=== PATIENT | female | born 1950 | race Caucasian/White ===

== ENCOUNTER 2016-09-17 14:26 | Inpatient (IN) | payer MEDICARE, BC ==
[2016-09-17] MEDS ORDERED: methylPREDNISolone Sodium Succinate 125 MG/2 ML SDV IVPUSH ONE (14:35)
[2016-09-17] MEDS ORDERED: Albuterol/Ipratropium 3.0-0.5 MG/3 ML Neb Soln NEB ONE (14:35)
[2016-09-17 15:15] LABS: CHLORIDE,CL 93 mmol/L (101-111); SODIUM,NA 135 mmol/L (135-145)
[2016-09-17] MEDS ORDERED: Levofloxacin/Dextrose 5%-Water 500 MG in Premix Bag 1 BAG IV ONE (15:40)
--- NOTE | 2016-09-17 15:43 | EDM.PDOC ---
Scribed by Safia Reinoso 09/17/16 1543 for Holger Brown PA ED HISTORY OF PRESENT ILLNESS - General Chief Complaint: Respiratory Problem Stated Complaint: HARD TIME BREATHING(COPD) Time Seen by Provider: 09/17/16 14:28 Source of Information: Reports: Patient, EMS, RN notes reviewed History Limitations: Reports: No limitations - History of Present Illness INITIAL COMMENTS - FREE TEXT/NARRATIVE: Patient arrives by ambulance with shortness of breath since last night. She is doing nebs and bronchodilators without relief. She started antibiotics today. She was seen by her provider in the clinic 2 days. She did not have any steroids or injections. She did have pneumonia last year. Severity: severe Location, General: Reports: chest Improves with: Reports: None Worsens with: Reports: None Associated Symptoms (General): Reports: no other symptoms - Related Data Allergies/ADRs: Allergies Allergy/AdvReac Type Severity Reaction Status Date / Time azithromycin Allergy Severe throat Verified 09/17/16 14:41 [From Zithromax Z-Rick] closes clindamycin Allergy Intermediate Hives Verified 09/17/16 14:41 erythromycin base Allergy Intermediate Hives Verified 09/17/16 14:41 Penicillins Allergy Intermediate Hives Verified 09/17/16 14:41 Home Meds: Home Meds Albuterol [Proair HFA] 2 puff INH ASDIRECTED 09/17/16 [History] Albuterol [Proventil Neb Soln] 1 unit INH ASDIRECTED 09/17/16 [History] Chlorthalidone [Chlorthalidone] 25 mg PO DAILY 09/17/16 [History] Doxycycline [Vibra-Tabs] 100 mg PO DAILY 09/17/16 [History] Formoterol [Perforomist] 1 unit INH DAILY 09/17/16 [History] Ibuprofen 200 mg PO ASDIRECTED 09/17/16 [History] Levothyroxine Sodium [Levothyroxine Sodium] 125 mcg PO DAILY 09/17/16 [History] Potassium Chloride [Potassium Chloride] 20 meq PO DAILY 09/17/16 [History] Tiotropium [place] [Spiriva Respimat] 2 puff INH DAILY 09/17/16 [History] Past Medical History Respiratory History: Reports: COPD, Other (see below) (bronchiectasis.) Social & Family History - Family History Family Medical History: Noncontributory - Living Situation & Occupation Living situation: Reports: with family ED ROS GENERAL - Review of Systems Review Of Systems: ROS reveals no pertinent complaints other than HPI. ED EXAM, GENERAL - Physical Exam Exam: See Below Exam Limited By: No limitations General Appearance: other (Shortness of breath and tripodding.) Eye Exam: bilateral eye: EOMI, normal inspection, PERRL Ears: normal external exam, normal canal, hearing grossly normal, normal TMs Nose: normal inspection, normal mucosa, no blood Throat/Mouth: Normal inspection, Normal lips, Normal teeth, Normal gums, Normal oropharynx, Normal voice, No airway compromise Head: atraumatic, normocephalic Neck: normal inspection, supple, non-tender, full range of motion Respiratory/Chest: rhonchi (throughout.), other (increased shortness of breath. Decreased lung sounds. ) Cardiovascular: tachycardia GI/Abdominal: normal bowel sounds, soft, non tender, no organomegaly, no distention, no abnormal bruit, no mass Back Exam: normal inspection, full range of motion, NT Extremities: normal inspection, normal range of motion, non-tender, normal capillary refill, no pedal edema Neurological: alert, oriented, CN II-XII intact, normal cognition, normal gait, normal reflexes, no motor/sensory deficits Psychiatric: normal affect, normal mood Skin Exam: Diaphoretic Lymphatic: no adenopathy Course - Vital Signs Last Recorded V/S: Last Vital Signs Temp 36.2 C 09/17/16 14:25 Pulse 110 H 09/17/16 14:25 Resp 28 H 09/17/16 14:25 BP 141/71 H 09/17/16 14:25 Pulse Ox 88 L 09/17/16 14:25 - Orders/Labs/Meds Orders: Active Orders 24 hr Category Date Time Status RT Aerosol Therapy [RC] ASDIRECTED Care 09/17/16 14:35 Active Chest 1V Frontal [CR] Urgent Exams 09/17/16 14:36 Ordered CULTURE BLOOD [BC] Stat Lab 09/17/16 14:36 Ordered Levofloxacin/Dextrose 5%-Water [Levaquin in D5W 500 MG/ Med 09/17/16 15:40 Ordered 100 ML] 500 mg Premix Bag 1 bag IV ONETIME Medication Orders Levofloxacin/Dextrose 500 mg/ (Premix) 100 mls @ 100 mls/hr IV ONETIME ONE Stop: 09/17/16 16:39 Labs: Laboratory Tests 09/17/16 09/17/16 09/17/16 Range/Units 14:48 14:48 14:48 WBC 11.6 H (5.0-10.0) 10^3/uL RBC 4.51 (4.2-5.4) 10^6/uL Hgb 14.4 (12.0-16.0) g/dL Hct 41.7 (37.0-47.0) % MCV 92.5 (80-100) fL MCH 31.9 (27.0-34.0) pg MCHC 34.5 (33.0-35.0) g/dL Plt Count 319 (150-450) 10^3/uL Neut % (Auto) 79.6 H (42.2-75.2) % Lymph % (Auto) 8.9 L (20.5-50.1) % [place] % (Auto) 7.3 (2-8) % Eos % (Auto) 3.9 H (1.0-3.0) % Baso % (Auto) 0.3 (0.0-1.0) % Sodium 135 (135-145) mmol/L Potassium 3.0 L (3.6-5.0) mmol/L Chloride 93 L (101-111) mmol/L Carbon Dioxide 31.0 (21.0-31.0) mmol/L Anion Gap 14.0 BUN 11 (7-18) mg/dL Creatinine 0.6 (0.6-1.3) mg/dL Est Cr Clr Drug Dosing TNP Estimated GFR (MDRD) > 60 BUN/Creatinine Ratio 18.33 Glucose 127 H (74-105) mg/dL Lactic Acid 0.8 (0.5-2.2) mmol/L Calcium 9.0 (8.4-10.2) mg/dl Total Bilirubin 0.4 (0.2-1.0) mg/dL AST 29 (10-42) IU/L ALT 31 (10-60) IU/L Alkaline Phosphatase 73 (42-121) IU/L Total Protein 7.5 (6.7-8.2) g/dl Albumin 4.0 (3.2-5.5) g/dl Globulin 3.5 Albumin/Globulin Ratio 1.14 Meds: Medications Generic Name Dose Route Start Last Admin Trade Name Ashishq PRN Reason Stop Dose Admin Levofloxacin/Dextrose 500 mg/ 100 mls @ 100 mls/hr 09/17/16 15:40 Premix IV 09/17/16 16:39 ONETIME ONE Discontinued Medications Generic Name Dose Route Start Last Admin Trade Name Carlitos PRN Reason Stop Dose Admin Albuterol/Ipratropium 3 ml 09/17/16 14:35 09/17/16 14:58 Duoneb 3.0-0.5 Mg/3 Ml NEB 09/17/16 14:36 3 ml ONETIME ONE Administration Methylprednisolone Sodium Succinate 125 mg 09/17/16 14:35 09/17/16 15:02 Solu-Medrol IVPUSH 09/17/16 14:36 125 mg ONETIME ONE Administration Departure - Departure Time of Disposition: 15:42 Disposition: Home, Self-Care 01 Condition: poor Clinical Impression: COPD exacerbation, Bronchitis Care Plan Goals: Discussed the examination, lab and x-ray results with Dr. Burrows. Dr. Burrows accepted the patient for continued evaluation and management as an inpatient. - My Orders Last 24 Hours: My Active Orders 09/17/16 14:35 RT Aerosol Therapy [RC] ASDIRECTED 09/17/16 14:36 Chest 1V Frontal [CR] Urgent CULTURE BLOOD [BC] Stat 09/17/16 15:40 Levofloxacin/Dextrose 5%-Water [Levaquin in D5W 500 MG/100 ML] 500 mg Premix Bag 1 bag IV ONETIME - Assessment/Plan Last 24 Hours: My Active Orders 09/17/16 14:35 RT Aerosol Therapy [RC] ASDIRECTED 09/17/16 14:36 Chest 1V Frontal [CR] Urgent CULTURE BLOOD [BC] Stat 09/17/16 15:40 Levofloxacin/Dextrose 5%-Water [Levaquin in D5W 500 MG/100 ML] 500 mg Premix Bag 1 bag IV ONETIME I have read and agree with the documentation that has been completed regarding this visit. By signing this record, I attest that the documentation was completed in my physical presence and is an accurate record of the encounter.
[2016-09-17] MEDS ORDERED: Potassium Chloride 20 MEQ in Premix Bag 1 BAG IV ONE (17:22)
[2016-09-17] MEDS ORDERED: Potassium Chloride 10 MEQ Tab.ER PO ONE (17:34)
--- NOTE | 2016-09-17 17:42 | PCM.HP ---
H&P History of Present Illness - General Date of Service: 09/17/16 Admit Problem/Dx: Admission Diagnosis/Problem Admission Diagnosis/Problem Dyspnea Source of Information: Patient History Limitations: Reports: No limitations - History of Present Illness Initial Comments - Free Text/Narative: Patient is a 66 year old female was admitted becuase of shortness of breath. Started to noted this last week, associated with dry cough. Temperature at home around 99F which for her is already high. No rhinorrhea, nor sore throat. no chest nor PND, though she uses nocturnal oxygen. minimal ankle swelling. started to have audible wheezing today. no exposure to sick contacts. Has baseline severe COPD. last course of antibiotics was last month after finishing 2.5 weeks of doxycycline. becuase of the flare up, she came in to ER. Right Hip Pain Score (Numeric/FACES): 0 back Pain Score (Numeric/FACES): 0 - Related Data Allergies/Adverse Reactions: Allergies Allergy/AdvReac Type Severity Reaction Status Date / Time azithromycin Allergy Severe throat Verified 09/17/16 14:41 [From Zithromax Z-Rick] closes clindamycin Allergy Intermediate Hives Verified 09/17/16 14:41 erythromycin base Allergy Intermediate Hives Verified 09/17/16 14:41 Penicillins Allergy Intermediate Hives Verified 09/17/16 14:41 levofloxacin [From Levaquin] AdvReac Nausea Verified 09/17/16 15:56 Home Medications: Home Meds Albuterol [Proair HFA] 2 puff INH Q4HR 09/17/16 [History] Albuterol [Proventil Neb Soln] 1 unit INH DAILY 09/17/16 [History] Chlorthalidone 25 mg PO 0800 09/17/16 [History] Fluticasone Propionate [Flonase] 0 gm NASBOTH DAILY PRN 09/17/16 [History] Formoterol [Perforomist] 2 ml INH BID 09/17/16 [History] Ibuprofen 200 mg PO ASDIRECTED 09/17/16 [History] Levothyroxine Sodium 125 mcg PO DAILY 09/17/16 [History] Potassium Chloride 20 meq PO DAILY 09/17/16 [History] Tiotropium [place] [Spiriva Respimat] 2 puff INH DAILY 09/17/16 [History] atorvaSTATin [Lipitor] 5 mg PO BEDTIME 09/17/16 [History] Albuterol/Ipratropium [DuoNeb 3.0-0.5 MG/3 ML] 3 ml NEB QIDRT #120 neb 09/24/16 [Rx] Codeine/Promethazine [Phenergan with Codeine] 5 ml PO Q4HR PRN #150 ml 09/24/16 [Rx] Codeine/guaiFENesin [Robitussin AC] 5 ml PO Q6H PRN #300 ml 09/24/16 [Rx] Diltiazem [Cardizem CD] 180 mg PO DAILY #30 cap.cd 09/24/16 [Rx] Prednisone [IJD: Prednisone] 10 mg PO DAILY #21 tab 09/24/16 [Rx] Sulfamethoxazole/Trimethoprim [Bactrim Ds Tablet] 1 each PO BID #14 tablet 09/24 [Rx] guaiFENesin [Robitussin] 100 mg PO 0630,1730 cup 09/24/16 [Rx] Past Medical History HEENT History: Reports: Other (see below) Other HEENT History: deviated septum Cardiovascular History: Reports: Hypertension Respiratory History: Reports: Bronchitis, recurrent, COPD, Pneumonia, recurrent MEDICAL DERMATOLOGIST History: Reports: Prolapsed uterus Endocrine/Metabolic History: Reports: Hypothyroidism Hematologic History: Reports: Other (see below) Other Hematologic History: hemochromotosis , mother had - Infectious Disease History Infectious Disease History: Reports: Chicken pox, Measles, Mumps, Pertussis ( whooping cough), Shingles - Past Surgical History GI Surgical History: Reports: Colonoscopy Social & Family History - Family History Family Medical History: Noncontributory Cardiac: Reports: Heart murmur Endocrine/Metabolic: Reports: Hypothyroidism Hematologic: Reports: Other (see below) Other Hematologic Family History: hemochromotosis - Tobacco Use Smoking Status *Q: Former Smoker Years of Tobacco use: 40 - Recreational Drug Use Recreational Drug Use: No - Living Situation & Occupation Living situation: Reports: with family H&P Review of Systems - Review of Systems: Review Of Systems: See Below General: Reports: fever Pulmonary: Reports: shortness of breath, wheezing Cardiovascular: Reports: dyspnea on exertion Gastrointestinal: Reports: No symptoms Genitourinary: Reports: no symptoms Musculoskeletal: Reports: no symptoms Psychiatric: Reports: no symptoms Hematologic/Lymphatic: Reports: no symptoms Exam - Exam Exam: See Below - Vital Signs Vital Signs: Last Vital Signs Temp 36.3 C 09/17/16 16:29 Pulse 111 H 09/17/16 16:29 Resp 28 H 09/17/16 16:29 BP 131/72 09/17/16 16:29 Pulse Ox 93 L 09/17/16 16:29 Weight: 78.925 kg - Exam General: alert, oriented Lungs: Other (decrease air entry on both lung jaime) Cardiovascular: regular rhythm, tachycardia Abdomen: normal bowel sounds, soft Back Exam: normal inspection Extremities: normal inspection, other (minimal ankle swelling on the left) Neurological: cranial nerves intact Neuro Extensive - Mental Status: alert, oriented x3 - Patient Data Result Diagrams: 09/18/16 05:40 09/24/16 06:33 *Q Meaningful Use (ADM) - VTE *Q VTE Criteria *Q: - Stroke *Q Stroke Criteria *Q: - AMI *Q AMI Criteria *Q: Problem List Initiated/Reviewed/Updated: Yes Orders Last 24hrs: Active Orders 24 hr Category Date Time Status Patient Status [ADT] Routine ADT 09/17/16 16:29 Active Intake and Output [RC] QSHIFT Care 09/17/16 16:29 Active Oxygen Therapy [RC] PRN Care 09/17/16 16:29 Active RT Aerosol Therapy [RC] ASDIRECTED Care 09/17/16 16:49 Active Up With Assistance [RC] ASDIRECTED Care 09/17/16 16:29 Active VTE/DVT Education [RC] PER UNIT ROUTINE Care 09/17/16 16:29 Active Vital Signs [RC] Q4H Care 09/17/16 16:29 Active BASIC METABOLIC PANEL,BMP [CHEM] Routine Lab 09/18/16 06:00 Ordered CBC WITH AUTO DIFF [HEME] Routine Lab 09/18/16 06:00 Ordered MAGNESIUM [CHEM] Routine Lab 09/18/16 06:00 Ordered Albuterol/Ipratropium [DuoNeb 3.0-0.5 MG/3 ML] Med 09/17/16 19:00 Active 3 ml NEB Q4HRRT Chlorthalidone Med 09/18/16 09:00 Active 25 mg PO DAILY Enoxaparin [Lovenox] Med 09/18/16 09:00 Active 40 mg SUBCUT DAILY Formoterol [Perforomist] Med 09/18/16 09:00 Pending 1 unit INH DAILY Levothyroxine Med 09/18/16 06:00 Active 125 mcg PO ACBREAKFAST Magnesium Sulfate/D5W [Magnesium 1 GM in D5W 100 ML] 1 Med 09/17/16 17:14 Active gm Premix Bag 1 bag IV ONETIME Potassium Chloride [KCL 20 MEQ in Water 100 ML] 20 meq Med 09/17/16 17:22 Stop Req Premix Bag 1 bag IV ONETIME Potassium Chloride [Klor-Con 10] Med 09/18/16 09:00 Active 20 meq PO DAILY Potassium Chloride [Klor-Con 10] Med 09/17/16 17:34 Once 20 meq PO ONETIME ONE Tiotropium [place] [Spiriva Respimat] Med 09/18/16 09:00 Pending 2 puff INH DAILY Resuscitation Status Routine Resus Stat 09/17/16 16:49 Ordered Medication Orders Albuterol/Ipratropium (Duoneb 3.0-0.5 Mg/3 Ml) 3 ml NEB Q4HRRT [place] Chlorthalidone (Chlorthalidone) 25 mg PO DAILY [place] Enoxaparin Sodium (Lovenox) 40 mg SUBCUT DAILY [place] Potassium Chloride 20 meq/ (Premix) 100 mls @ 50 mls/hr IV ONETIME ONE Stop: 09/17/16 19:21 Magnesium Sulfate/Dextrose 1 (gm/ Premix) 100 mls @ 100 mls/hr IV ONETIME ONE Stop: 09/17/16 18:13 Levothyroxine Sodium (Levothyroxine) 125 mcg PO ACBREAKFAST [place] Non-Formulary Medication (Formoterol [Perforomist]) 1 unit INH DAILY [place] Non-Formulary Medication (Tiotropium [place] [Spiriva Respimat]) 2 puff INH DAILY [place] Potassium Chloride (Klor-Con 10) 20 meq PO DAILY [place] Assessment/Plan Comment:: 1. COPD exacerbation - was given solumedrol, will follow up solumedrol 60mg IV every 8 hours - Levaquin - duoneb every 4 hours [place] - IS and flutter valve - last echo 05/2016 showed diastolic dysfunction, no signs of decompensation 2. Hypokalemia - add another 20mg of Kdur - replace low magnesium 3. hypothyroidism - continue synthroid 4. Diverticuolosis - ensure regular BM 5. DVT prophylaxis - lovenox 6. code status: full
[2016-09-17] MEDS ORDERED: methylPREDNISolone Sodium Succinate 40 MG/1 ML SDV IVPUSH SCH (17:45)
[2016-09-17] MEDS ORDERED: Zolpidem 5 MG Tab PO PRN (18:18)
[2016-09-17] MEDS: Albuterol/Ipratropium 3.0-0.5 MG/3 ML Neb Soln NEB SCH ×2 (18:28→22:49)
[2016-09-17] MEDS ORDERED: Albuterol 0.021% 0.63 MG/3 ML Neb Soln NEB PRN (18:43)
[2016-09-17] MEDS: Ibuprofen 400 MG Tab PO PRN (19:07)
[2016-09-17] MEDS: methylPREDNISolone Sodium Succinate 40 MG/1 ML SDV IVPUSH SCH (19:50)
[2016-09-17] MEDS: FORMOTEROL 20 MCG/2 ML INH SCH (19:59)
[2016-09-17] MEDS: TIOTROPIUM BROMIDE INH SCH (19:59)
[2016-09-17] MEDS: Budesonide 0.5 MG/2 ML Neb Susp NEB SCH (20:12)
[2016-09-17] MEDS: Enoxaparin 40 MG/0.4 ML Syringe SUBCUT SCH (20:12)
[2016-09-18] MEDS: Albuterol/Ipratropium 3.0-0.5 MG/3 ML Neb Soln NEB SCH ×6 (03:43→22:21)
[2016-09-18] MEDS: methylPREDNISolone Sodium Succinate 40 MG/1 ML SDV IVPUSH SCH ×3 (03:45→20:25)
[2016-09-18] MEDS: Levothyroxine 125 MCG Tab PO SCH (05:46)
[2016-09-18 06:25] LABS: CHLORIDE,CL 94 mmol/L (101-111); SODIUM,NA 136 mmol/L (135-145)
[2016-09-18] MEDS: Budesonide 0.5 MG/2 ML Neb Susp NEB SCH ×2 (07:16→18:08)
[2016-09-18] MEDS: FORMOTEROL 20 MCG/2 ML INH SCH ×2 (08:23→18:06)
[2016-09-18] MEDS: Chlorthalidone 25 MG Tab PO SCH (08:24)
[2016-09-18] MEDS: Potassium Chloride 10 MEQ Tab.ER PO SCH (08:24)
[2016-09-18] MEDS: TIOTROPIUM BROMIDE INH SCH (08:27)
[2016-09-18] MEDS: Levofloxacin/Dextrose 5%-Water 750 MG in Premix Bag 1 BAG IV SCH (08:28)
[2016-09-18] MEDS ORDERED: Non-Formulary Medication 1 Each (Tiotropium Bromide [Spiriva Respimat] 2 PUFF) INH SCH (09:00)
[2016-09-18] MEDS ORDERED: FORMOTEROL INH SCH (09:00)
--- NOTE | 2016-09-18 09:41 | PCM.PN ---
- General Info Date of Service: 09/18/16 Admission Dx/Problem (Free Text): Admission Diagnosis/Problem Admission Diagnosis/Problem Dyspnea/Cough/Increased shortness of Breath Subjective Update: Today she feels much better, still has cough but mech better, No nausea or Vomiting, Slept well, appetite is Good. Functional Status: Reports: tolerating diet, ambulating, urinating - Review of Systems General: Reports: weakness, appetite (good). Denies: fever, chills HEENT: Denies: dysphasia, headaches, sore throat, visual changes Pulmonary: Reports: shortness of breath, cough, sputum (scant). Denies: hemoptysis Cardiovascular: Reports: dyspnea on exertion. Denies: chest pain, lightheadedness Gastrointestinal: Denies: Abdominal pain, Difficulty swallowing, Nausea, Vomiting Genitourinary: Denies: dysuria, burning Musculoskeletal: Denies: neck pain, shoulder pain, back pain, joint pain, joint swelling Skin: Denies: cyanosis, jaundice, diaphoresis, bruising, pruritis, rash Neurological: Denies: confusion, numbness, tremors, difficulty walking Psychiatric: Denies: confusion, anxiety - Patient Data Vitals - most recent: Last Vital Signs Temp 37.3 C 09/18/16 07:00 Pulse 102 H 09/18/16 07:30 Resp 20 09/18/16 07:00 BP 110/61 09/18/16 07:00 Pulse Ox 97 09/18/16 07:30 Weight - most recent: 78.925 kg I&O - last 24 hours: Intake & Output 09/17/16 09/18/16 09/18/16 22:59 06:59 14:59 Intake Total 693 550 Output Total 600 800 Balance 93 -250 Lab Results last 24 hrs: Laboratory Results - last 24 hr 09/18/16 09/18/16 Range/Units 05:40 05:40 WBC 7.0 (5.0-10.0) 10^3/uL RBC 4.38 (4.2-5.4) 10^6/uL Hgb 13.9 (12.0-16.0) g/dL Hct 40.9 (37.0-47.0) % MCV 93.4 (80-100) fL MCH 31.7 (27.0-34.0) pg MCHC 34.0 (33.0-35.0) g/dL Plt Count 329 (150-450) 10^3/uL Neut % (Auto) 85.5 H (42.2-75.2) % Lymph % (Auto) 10.8 L (20.5-50.1) % [place] % (Auto) 3.6 (2-8) % Eos % (Auto) 0.0 L (1.0-3.0) % Baso % (Auto) 0.1 (0.0-1.0) % Sodium 136 (135-145) mmol/L Potassium 3.1 L (3.6-5.0) mmol/L Chloride 94 L (101-111) mmol/L Carbon Dioxide 32.0 H (21.0-31.0) mmol/L Anion Gap 13.1 BUN 11 (7-18) mg/dL Creatinine 0.7 (0.6-1.3) mg/dL Est Cr Clr Drug Dosing 75.01 mL/min Estimated GFR (MDRD) > 60 Glucose 174 H (74-105) mg/dL Calcium 9.1 (8.4-10.2) mg/dl Magnesium 1.9 (1.8-2.5) mg/dL Med Orders - Current: Current Medications Albuterol (Proventil Neb Soln) 0.63 mg NEB Q4HRRT PRN PRN Reason: Dyspnea Albuterol/Ipratropium (Duoneb 3.0-0.5 Mg/3 Ml) 3 ml NEB Q4HRRT [facility] Last Admin: 09/18/16 07:16 Dose: 3 ml Budesonide (Pulmicort) 0.5 mg NEB BIDRT [facility] Last Admin: 09/18/16 07:16 Dose: 0.5 mg Chlorthalidone (Chlorthalidone) 25 mg PO DAILY [facility] Last Admin: 09/18/16 08:24 Dose: 25 mg Enoxaparin Sodium (Lovenox) 40 mg SUBCUT Q24H [facility] Last Admin: 09/17/16 20:12 Dose: 40 mg Levofloxacin/Dextrose 750 mg/ (Premix) 150 mls @ 100 mls/hr IV Q24H [facility] Last Admin: 09/18/16 08:28 Dose: 50 mls/hr Ibuprofen (Motrin) 400 mg PO Q6H PRN PRN Reason: Pain Last Admin: 09/17/16 19:07 Dose: 400 mg Levothyroxine Sodium (Levothyroxine) 125 mcg PO ACBREAKFAST [facility] Last Admin: 09/18/16 05:46 Dose: 125 mcg Methylprednisolone Sodium Succinate (Solu-Medrol) 60 mg IVPUSH Q8H [facility] Last Admin: 09/18/16 03:45 Dose: 60 mg Tiotropium [place] [ Spiriva Respimat] 2 PuffPtom 0 each INH DAILY [facility] Last Admin: 09/18/16 08:27 Dose: 2 each Formoterol [ Perforomist] 20mcg/2ml Ptom 1 each INH BID@0700,1800 [facility] Potassium Chloride (Klor-Con 10) 20 meq PO DAILY [facility] Last Admin: 09/18/16 08:24 Dose: 20 meq Zolpidem Tartrate (Ambien) 5 mg PO BEDTIME PRN PRN Reason: Insomnia Discontinued Medications Albuterol/Ipratropium (Duoneb 3.0-0.5 Mg/3 Ml) 3 ml NEB ONETIME ONE Stop: 09/17/16 14:36 Last Admin: 09/17/16 14:58 Dose: 3 ml Levofloxacin/Dextrose 500 mg/ (Premix) 100 mls @ 100 mls/hr IV ONETIME ONE Stop: 09/17/16 16:39 Last Infusion: 09/17/16 17:22 Dose: 50 mls/hr Potassium Chloride 20 meq/ (Premix) 100 mls @ 50 mls/hr IV ONETIME ONE Stop: 09/17/16 19:21 Last Admin: 09/17/16 17:40 Dose: Not Given Magnesium Sulfate/Dextrose 1 (gm/ Premix) 100 mls @ 100 mls/hr IV ONETIME ONE Stop: 09/17/16 18:13 Last Admin: 09/17/16 18:12 Dose: 100 mls/hr Methylprednisolone Sodium Succinate (Solu-Medrol) 125 mg IVPUSH ONETIME ONE Stop: 09/17/16 14:36 Last Admin: 09/17/16 15:02 Dose: 125 mg Methylprednisolone Sodium Succinate (Solu-Medrol) 60 mg IVPUSH Q8H [facility] Last Admin: 09/17/16 18:24 Dose: Not Given Formoterol [ Perforomist] 20mcg/2ml Ptom 1 each INH DAILY [facility] Last Admin: 09/18/16 08:23 Dose: 1 each Potassium Chloride (Klor-Con 10) 20 meq PO ONETIME ONE Stop: 09/17/16 17:35 Last Admin: 09/17/16 18:11 Dose: 20 meq - Exam Quality Assessment: supplemental oxygen, DVT prophylaxis. No: urine catheter General: alert, oriented, cooperative, no acute distress HEENT: Pupils equal, Pupils reactive, Mucous membr. moist/pink Neck: supple, no JVD, no thyromegaly. No: lymphadenopathy Lungs: Clear to auscultation, Normal respiratory effort, Wheezing. No: Crackles Cardiovascular: regular rate, regular rhythm, no murmurs Abdomen: bowel sounds present, soft, no tenderness, no distension. No: rebound , guarding (Female) Exam: Deferred Back Exam: normal inspection, full range of motion Extremities: no edema, no clubbing, no calf tenderness Skin: warm, dry, intact Neurological: no new focal deficit, normal speech, normal tone Psy/Mental Status: alert, normal affect, normal mood - Problem List & Annotations (1) Hypokalemia SNOMED Code(s): 27205405 Code(s): E87.6 - HYPOKALEMIA Status: Acute Current Visit: Yes (2) Hypothyroidism SNOMED Code(s): 28931683 Code(s): E03.9 - HYPOTHYROIDISM, UNSPECIFIED Status: Acute Current Visit : Yes (3) COPD exacerbation SNOMED Code(s): 503445889, 189092960 Code(s): J44.1 - CHRONIC OBSTRUCTIVE PULMONARY DISEASE W (ACUTE) EXACERBATION Status: Acute Current Visit: Yes - Problem List Review Problem List Initiated/Reviewed/Updated: Yes - My Orders Last 24 Hours: My Active Orders 09/17/16 Dinner Regular Diet [DIET] - Plan Plan:: This is a 66 Y/O F with Past Medical history of COPD on Nocturnal oxygen and also use oxygen during the day only if she is out for physical activity, do not use oxygen during the while at rest, other history include Hypothyroidism and chronic Hypokalemia 1. COPD exacerbation - Will continue solumedrol 60mg IV every 8 hours and start tapering from tomorrow ( 09/19/16) - Will continue IV Levaquin ( tolerating no skin rash or other symptom of intolerance) - Continue duoneb every 4 hours trey - Advise to use IS and flutter valve 2. Hypokalemia - Continue Potassium chloride 20meq daily - Will give a extra dose of potassium chloride 40 meq PO X 1 now -Recheck Potassium in AM 3. Hypothyroidism - continue synthroid 4. Diverticuolosis - No abdominal Pain ensure regular BM 5. Hypomagnesemia: Pt has receive replacement and Magnesium is acceptable 6. DVT prophylaxis - lovenox 7. code status: full
[2016-09-18] MEDS ORDERED: Potassium Chloride 10 MEQ Tab.ER PO ONE (09:52)
[2016-09-18] MEDS: Enoxaparin 40 MG/0.4 ML Syringe SUBCUT SCH (20:26)
[2016-09-18] MEDS: Ibuprofen 400 MG Tab PO PRN (22:23)
[2016-09-19] MEDS: Albuterol/Ipratropium 3.0-0.5 MG/3 ML Neb Soln NEB SCH ×6 (03:58→22:59)
[2016-09-19] MEDS: methylPREDNISolone Sodium Succinate 40 MG/1 ML SDV IVPUSH SCH ×3 (04:00→19:46)
[2016-09-19] MEDS: Levothyroxine 125 MCG Tab PO SCH (05:22)
[2016-09-19] MEDS: Budesonide 0.5 MG/2 ML Neb Susp NEB SCH ×2 (06:56→18:13)
[2016-09-19] MEDS: FORMOTEROL 20 MCG/2 ML INH SCH ×2 (06:56→18:14)
[2016-09-19 06:59] LABS: CHLORIDE,CL 93 mmol/L (101-111); SODIUM,NA 133 mmol/L (135-145)
[2016-09-19] MEDS ORDERED: Potassium Chloride 10 MEQ Tab.ER PO ONE ×2 (08:49→18:08)
[2016-09-19] MEDS ORDERED: Furosemide 40 MG/4 ML VIAL IVPUSH ONE (09:38)
--- NOTE | 2016-09-19 09:52 | PCM.PN ---
- General Info Date of Service: 09/19/16 Admission Dx/Problem (Free Text): Admission Diagnosis/Problem Admission Diagnosis/Problem Dyspnea/Cough/Increased shortness of Breath Subjective Update: Today she feels much better, still has cough but much better, still on 3 L NC oxygen, No nausea or Vomiting, Slept well, appetite is Good. Functional Status: Reports: tolerating diet, ambulating, incentive spirometry - Review of Systems General: Reports: weakness, appetite (good). Denies: fever, chills HEENT: Denies: dysphasia, headaches, post nasal drip, sinus congestion, visual changes Pulmonary: Reports: shortness of breath, cough. Denies: sputum, hemoptysis, wheezing Cardiovascular: Reports: dyspnea on exertion. Denies: chest pain, edema, lightheadedness Gastrointestinal: Denies: Abdominal pain, Diarrhea, Difficulty swallowing, Melena, Nausea, Vomiting Genitourinary: Denies: dysuria, burning, urgency, flank pain Musculoskeletal: Denies: neck pain, shoulder pain, back pain, foot pain Skin: Denies: cyanosis, jaundice, bruising, pruritis, rash Neurological: Denies: headache, tingling, tremors, difficulty walking, change in speech Psychiatric: Denies: confusion, anxiety - Patient Data Vitals - most recent: Last Vital Signs Temp 36.9 C 09/19/16 07:00 Pulse 116 H 09/19/16 07:00 Resp 20 09/19/16 07:00 BP 117/58 L 09/19/16 07:00 Pulse Ox 95 09/19/16 07:00 Weight - most recent: 78.925 kg I&O - last 24 hours: Intake & Output 09/18/16 09/19/16 09/19/16 22:59 06:59 14:59 Intake Total 1110 1350 Output Total 600 1200 Balance 510 150 Lab Results last 24 hrs: Laboratory Results - last 24 hr 09/19/16 Range/Units 06:15 Sodium 133 L (135-145) mmol/L Potassium 3.2 L (3.6-5.0) mmol/L Chloride 93 L (101-111) mmol/L Carbon Dioxide 29.0 (21.0-31.0) mmol/L Anion Gap 14.2 BUN 18 (7-18) mg/dL Creatinine 0.8 (0.6-1.3) mg/dL Est Cr Clr Drug Dosing 65.63 mL/min Estimated GFR (MDRD) > 60 Glucose 157 H (74-105) mg/dL Calcium 8.8 (8.4-10.2) mg/dl Med Orders - Current: Current Medications Albuterol (Proventil Neb Soln) 0.63 mg NEB Q4HRRT PRN PRN Reason: Dyspnea Albuterol/Ipratropium (Duoneb 3.0-0.5 Mg/3 Ml) 3 ml NEB Q4HRRT [facility] Last Admin: 09/19/16 06:56 Dose: 3 ml Budesonide (Pulmicort) 0.5 mg NEB BIDRT [facility] Last Admin: 09/19/16 06:56 Dose: 0.5 mg Chlorthalidone (Chlorthalidone) 25 mg PO DAILY [facility] Last Admin: 09/18/16 08:24 Dose: 25 mg Enoxaparin Sodium (Lovenox) 40 mg SUBCUT Q24H [facility] Last Admin: 09/18/16 20:26 Dose: 40 mg Furosemide (Lasix) 40 mg IVPUSH NOW ONE Stop: 09/19/16 09:39 Levofloxacin/Dextrose 750 mg/ (Premix) 150 mls @ 100 mls/hr IV Q24H [facility] Last Admin: 09/18/16 08:28 Dose: 50 mls/hr Ibuprofen (Motrin) 400 mg PO Q6H PRN PRN Reason: Pain Last Admin: 09/18/16 22:23 Dose: 400 mg Levothyroxine Sodium (Levothyroxine) 125 mcg PO ACBREAKFAST [facility] Last Admin: 09/19/16 05:22 Dose: 125 mcg Methylprednisolone Sodium Succinate (Solu-Medrol) 60 mg IVPUSH Q8H [facility] Last Admin: 09/19/16 04:00 Dose: 60 mg Tiotropium [place] [ Spiriva Respimat] 2 PuffPtom 0 each INH DAILY [facility] Last Admin: 09/18/16 08:27 Dose: 2 each Formoterol [ Perforomist] 20mcg/2ml Ptom 1 each INH BID@0700,1800 [facility] Last Admin: 09/19/16 06:56 Dose: 1 each Potassium Chloride (Klor-Con 10) 20 meq PO DAILY [facility] Last Admin: 09/18/16 08:24 Dose: 20 meq Zolpidem Tartrate (Ambien) 5 mg PO BEDTIME PRN PRN Reason: Insomnia Discontinued Medications Albuterol/Ipratropium (Duoneb 3.0-0.5 Mg/3 Ml) 3 ml NEB ONETIME ONE Stop: 09/17/16 14:36 Last Admin: 09/17/16 14:58 Dose: 3 ml Levofloxacin/Dextrose 500 mg/ (Premix) 100 mls @ 100 mls/hr IV ONETIME ONE Stop: 09/17/16 16:39 Last Infusion: 09/17/16 17:22 Dose: 50 mls/hr Potassium Chloride 20 meq/ (Premix) 100 mls @ 50 mls/hr IV ONETIME ONE Stop: 09/17/16 19:21 Last Admin: 09/17/16 17:40 Dose: Not Given Magnesium Sulfate/Dextrose 1 (gm/ Premix) 100 mls @ 100 mls/hr IV ONETIME ONE Stop: 09/17/16 18:13 Last Admin: 09/17/16 18:12 Dose: 100 mls/hr Methylprednisolone Sodium Succinate (Solu-Medrol) 125 mg IVPUSH ONETIME ONE Stop: 09/17/16 14:36 Last Admin: 09/17/16 15:02 Dose: 125 mg Methylprednisolone Sodium Succinate (Solu-Medrol) 60 mg IVPUSH Q8H [facility] Last Admin: 09/17/16 18:24 Dose: Not Given Formoterol [ Perforomist] 20mcg/2ml Ptom 1 each INH DAILY [facility] Last Admin: 09/18/16 08:23 Dose: 1 each Potassium Chloride (Klor-Con 10) 20 meq PO ONETIME ONE Stop: 09/17/16 17:35 Last Admin: 09/17/16 18:11 Dose: 20 meq Potassium Chloride (Klor-Con 10) 40 meq PO ONETIME ONE Stop: 09/18/16 09:53 Last Admin: 09/18/16 10:07 Dose: 40 meq Potassium Chloride (Klor-Con 10) 40 meq PO ONETIME ONE Stop: 09/19/16 08:50 - Exam Quality Assessment: supplemental oxygen, DVT prophylaxis. No: urine catheter General: alert, oriented, cooperative, no acute distress HEENT: Pupils equal, Mucous membr. moist/pink Neck: supple, no JVD. No: lymphadenopathy, carotid bruit Lungs: Clear to auscultation, Normal respiratory effort, Decreased breath sounds , Crackles Cardiovascular: regular rate, regular rhythm, murmurs Abdomen: bowel sounds present, soft, no tenderness, no distension Back Exam: normal inspection Extremities: no clubbing, no calf tenderness, calf tenderness, edema (Trace to + 1) Skin: warm, dry, intact Neurological: no new focal deficit, normal gait, normal speech Psy/Mental Status: alert, normal affect, normal mood - Problem List & Annotations (1) Hypokalemia SNOMED Code(s): 60978610 Code(s): E87.6 - HYPOKALEMIA Status: Acute Current Visit: Yes (2) Hypothyroidism SNOMED Code(s): 83857683 Code(s): E03.9 - HYPOTHYROIDISM, UNSPECIFIED Status: Acute Current Visit : Yes (3) COPD exacerbation SNOMED Code(s): 213802701, 609250402 Code(s): J44.1 - CHRONIC OBSTRUCTIVE PULMONARY DISEASE W (ACUTE) EXACERBATION Status: Acute Current Visit: Yes (4) Edema extremities SNOMED Code(s): 815819457 Code(s): R60.0 - LOCALIZED EDEMA Status: Acute Current Visit: Yes - Problem List Review Problem List Initiated/Reviewed/Updated: Yes - My Orders Last 24 Hours: My Active Orders 09/19/16 09:38 Furosemide [Lasix] 40 mg IVPUSH NOW ONE 09/20/16 06:00 BASIC METABOLIC PANEL,BMP [CHEM] Routine - Plan Plan:: This is a 66 Y/O F with Past Medical history of COPD on Nocturnal oxygen and also use oxygen during the day only if she is out for physical activity, do not use oxygen during the while at rest, other history include Hypothyroidism and chronic Hypokalemia and history of smoking 40 years ( quit 4 years ago) 1. COPD exacerbation - Will continue solumedrol 60mg IV every 8 hours and start tapering from tomorrow ( 09/20/16) - Will continue IV Levaquin ( tolerating no skin rash or other symptom of intolerance), can not add any other Abx because of severe allery status - Continue duoneb every 4 hours trey - Advise to use IS and flutter valve -Titrate NC Oxygen as tolerated and also encourage walking 2. Hypokalemia - Continue Potassium chloride 20meq daily - Will give an extra dose of potassium chloride 40 meq PO X 1 now -Recheck Potassium in AM 3. Hypothyroidism - continue synthroid 4. Diverticuolosis - No abdominal Pain ensure regular BM 5. Hypomagnesemia: Pt has receive replacement and Magnesium is acceptable 6. Edema of Estremities: She has Increased LE swelling and also CXR increased vascular markings -Will give dose ogf lasix 40 mg IV X1 dose -Continue Chlorthalidone 12.5 mg daily 7. DVT prophylaxis - lovenox 8. code status: full
[2016-09-19] MEDS: Chlorthalidone 25 MG Tab PO SCH (09:53)
[2016-09-19] MEDS: Potassium Chloride 10 MEQ Tab.ER PO SCH (09:54)
[2016-09-19] MEDS: Levofloxacin/Dextrose 5%-Water 750 MG in Premix Bag 1 BAG IV SCH (09:56)
[2016-09-19] MEDS: TIOTROPIUM BROMIDE INH SCH (09:56)
[2016-09-19] MEDS: Enoxaparin 40 MG/0.4 ML Syringe SUBCUT SCH (21:28)
[2016-09-19] MEDS: Ibuprofen 400 MG Tab PO PRN (21:34)
[2016-09-20] MEDS: Albuterol/Ipratropium 3.0-0.5 MG/3 ML Neb Soln NEB SCH ×6 (03:14→22:44)
[2016-09-20] MEDS: Sodium Chloride 0.9% 10 ML Syringe FLUSH PRN ×2 (03:20→20:14)
[2016-09-20] MEDS: methylPREDNISolone Sodium Succinate 40 MG/1 ML SDV IVPUSH SCH ×3 (03:22→20:15)
[2016-09-20] MEDS: Levothyroxine 125 MCG Tab PO SCH (06:24)
[2016-09-20] MEDS: FORMOTEROL 20 MCG/2 ML INH SCH ×2 (06:38→18:14)
[2016-09-20] MEDS: Budesonide 0.5 MG/2 ML Neb Susp NEB SCH ×2 (06:41→18:08)
[2016-09-20 06:55] LABS: CHLORIDE,CL 92 mmol/L (101-111); SODIUM,NA 134 mmol/L (135-145)
[2016-09-20] MEDS: Chlorthalidone 25 MG Tab PO SCH (09:26)
[2016-09-20] MEDS: Potassium Chloride 10 MEQ Tab.ER PO SCH (09:26)
[2016-09-20] MEDS: TIOTROPIUM BROMIDE INH SCH (09:26)
[2016-09-20] MEDS: Levofloxacin/Dextrose 5%-Water 750 MG in Premix Bag 1 BAG IV SCH (09:26)
[2016-09-20] MEDS ORDERED: Potassium Chloride 10 MEQ Tab.ER PO ONE (12:58)
--- NOTE | 2016-09-20 12:58 | PCM.PN ---
- General Info Date of Service: 09/20/16 Subjective Update: pt reports breathing cont to improved but not to basline. very sob after any activity- just walking to bathroom- and iwht longer conversations Functional Status: Reports: pain controlled, tolerating diet, ambulating, urinating - Review of Systems Pulmonary: Reports: shortness of breath, cough Cardiovascular: Reports: dyspnea on exertion Gastrointestinal: Reports: No symptoms - Patient Data Vitals - most recent: Last Vital Signs Temp 36.3 C 09/20/16 11:00 Pulse 127 H 09/20/16 11:00 Resp 18 09/20/16 11:00 BP 124/82 09/20/16 11:00 Pulse Ox 93 L 09/20/16 11:00 Weight - most recent: 79.492 kg I&O - last 24 hours: Intake & Output 09/19/16 09/20/16 09/20/16 22:59 06:59 14:59 Intake Total 2300 650 143 Output Total 149 502 4712 Balance 1460 50 -857 Lab Results last 24 hrs: Laboratory Results - last 24 hr 09/20/16 Range/Units 06:22 Sodium 134 L (135-145) mmol/L Potassium 3.5 L (3.6-5.0) mmol/L Chloride 92 L (101-111) mmol/L Carbon Dioxide 31.0 (21.0-31.0) mmol/L Anion Gap 14.5 BUN 21 H (7-18) mg/dL Creatinine 0.9 (0.6-1.3) mg/dL Est Cr Clr Drug Dosing 58.34 mL/min Estimated GFR (MDRD) > 60 Glucose 158 H (74-105) mg/dL Calcium 9.0 (8.4-10.2) mg/dl Med Orders - Current: Current Medications Albuterol (Proventil Neb Soln) 0.63 mg NEB Q4HRRT PRN PRN Reason: Dyspnea Albuterol/Ipratropium (Duoneb 3.0-0.5 Mg/3 Ml) 3 ml NEB Q4HRRT [facility] Last Admin: 09/20/16 11:17 Dose: 3 ml Budesonide (Pulmicort) 0.5 mg NEB BIDRT [facility] Last Admin: 09/20/16 06:41 Dose: 0.5 mg Chlorthalidone (Chlorthalidone) 25 mg PO DAILY [facility] Last Admin: 09/20/16 09:26 Dose: 25 mg Enoxaparin Sodium (Lovenox) 40 mg SUBCUT Q24H [facility] Last Admin: 09/19/16 21:28 Dose: 40 mg Levofloxacin/Dextrose 750 mg/ (Premix) 150 mls @ 100 mls/hr IV Q24H [facility] Last Infusion: 09/20/16 10:24 Dose: 75 mls/hr Ibuprofen (Motrin) 400 mg PO Q6H PRN PRN Reason: Pain Last Admin: 09/19/16 21:34 Dose: 400 mg Levothyroxine Sodium (Levothyroxine) 125 mcg PO ACBREAKFAST [facility] Last Admin: 09/20/16 06:24 Dose: 125 mcg Methylprednisolone Sodium Succinate (Solu-Medrol) 40 mg IVPUSH Q8H [facility] Last Admin: 09/20/16 11:17 Dose: 40 mg Tiotropium [place] [ Spiriva Respimat] 2 PuffPtom 0 each INH DAILY [facility] Last Admin: 09/20/16 09:26 Dose: 2 each Formoterol [ Perforomist] 20mcg/2ml Ptom 1 each INH BID@0700,1800 [facility] Last Admin: 09/20/16 06:38 Dose: 1 each Potassium Chloride (Klor-Con 10) 20 meq PO DAILY [facility] Last Admin: 09/20/16 09:26 Dose: 20 meq Sodium Chloride (Saline Flush) 10 ml FLUSH ASDIRECTED PRN PRN Reason: Keep Vein Open Last Admin: 09/20/16 03:20 Dose: 10 ml Zolpidem Tartrate (Ambien) 5 mg PO BEDTIME PRN PRN Reason: Insomnia Discontinued Medications Albuterol/Ipratropium (Duoneb 3.0-0.5 Mg/3 Ml) 3 ml NEB ONETIME ONE Stop: 09/17/16 14:36 Last Admin: 09/17/16 14:58 Dose: 3 ml Furosemide (Lasix) 40 mg IVPUSH NOW ONE Stop: 09/19/16 09:39 Last Admin: 09/19/16 10:22 Dose: 40 mg Levofloxacin/Dextrose 500 mg/ (Premix) 100 mls @ 100 mls/hr IV ONETIME ONE Stop: 09/17/16 16:39 Last Infusion: 09/17/16 17:22 Dose: 50 mls/hr Potassium Chloride 20 meq/ (Premix) 100 mls @ 50 mls/hr IV ONETIME ONE Stop: 09/17/16 19:21 Last Admin: 09/17/16 17:40 Dose: Not Given Magnesium Sulfate/Dextrose 1 (gm/ Premix) 100 mls @ 100 mls/hr IV ONETIME ONE Stop: 09/17/16 18:13 Last Admin: 09/17/16 18:12 Dose: 100 mls/hr Methylprednisolone Sodium Succinate (Solu-Medrol) 125 mg IVPUSH ONETIME ONE Stop: 09/17/16 14:36 Last Admin: 09/17/16 15:02 Dose: 125 mg Methylprednisolone Sodium Succinate (Solu-Medrol) 60 mg IVPUSH Q8H [facility] Last Admin: 09/17/16 18:24 Dose: Not Given Methylprednisolone Sodium Succinate (Solu-Medrol) 60 mg IVPUSH Q8H [facility] Last Admin: 09/20/16 03:22 Dose: 60 mg Formoterol [ Perforomist] 20mcg/2ml Ptom 1 each INH DAILY [facility] Last Admin: 09/18/16 08:23 Dose: 1 each Potassium Chloride (Klor-Con 10) 20 meq PO ONETIME ONE Stop: 09/17/16 17:35 Last Admin: 09/17/16 18:11 Dose: 20 meq Potassium Chloride (Klor-Con 10) 40 meq PO ONETIME ONE Stop: 09/18/16 09:53 Last Admin: 09/18/16 10:07 Dose: 40 meq Potassium Chloride (Klor-Con 10) 40 meq PO ONETIME ONE Stop: 09/19/16 08:50 Last Admin: 09/19/16 09:53 Dose: 40 meq Potassium Chloride (Klor-Con 10) 20 meq PO ONETIME ONE Stop: 09/19/16 18:09 Last Admin: 09/19/16 18:11 Dose: 20 meq - Exam Quality Assessment: supplemental oxygen General: alert, oriented, cooperative, mild distress (with conversation ) Lungs: Decreased breath sounds, Crackles (right base ) Cardiovascular: regular rhythm, tachycardia Abdomen: bowel sounds present, soft, no tenderness Extremities: edema (trace ) - Problem List & Annotations (1) Bronchitis SNOMED Code(s): 48299361 Code(s): J40 - BRONCHITIS, NOT SPECIFIED ACUTE OR CHRONIC Status: Acute Current Visit: Yes (2) COPD exacerbation SNOMED Code(s): 227604325, 324752363 Code(s): J44.1 - CHRONIC OBSTRUCTIVE PULMONARY DISEASE W (ACUTE) EXACERBATION Status: Acute Current Visit: Yes - Problem List Review Problem List Initiated/Reviewed/Updated: Yes - My Orders Last 24 Hours: My Active Orders 09/20/16 12:00 methylPREDNISolone Sod Succ [Solu-MEDROL] 40 mg IVPUSH Q8H - Plan Plan:: This is a 66 Y/O F with Past Medical history of COPD on Nocturnal oxygen and also use oxygen during the day only if she is out for physical activity, do not use oxygen during the while at rest, other history include Hypothyroidism and chronic Hypokalemia and history of smoking 40 years ( quit 4 years ago) 1. COPD exacerbation - Will continue solumedrol decrease to 40 mg Q8 - Will continue IV Levaquin - Continue duoneb every 4 hours trey - Advise to use IS and flutter valve -Titrate NC Oxygen as tolerated and also encourage walking 2. Hypokalemia - Continue Potassium chloride 20meq daily -3.4 this am- can give extra dose again today -Recheck Potassium in AM 3. Hypothyroidism - continue synthroid 4. Diverticuolosis - No abdominal Pain ensure regular BM 5. Hypomagnesemia: Pt has receive replacement and Magnesium is acceptable 6. Edema of Estremities: She has Increased LE swelling and also CXR increased vascular markings -received one dose lasix 40 mg IV X1 -Continue Chlorthalidone 12.5 mg daily 7. DVT prophylaxis - lovenox 8. code status: full
[2016-09-20] MEDS: Enoxaparin 40 MG/0.4 ML Syringe SUBCUT SCH (20:20)
[2016-09-20] MEDS: Ibuprofen 400 MG Tab PO PRN (22:49)
[2016-09-21] MEDS: Albuterol/Ipratropium 3.0-0.5 MG/3 ML Neb Soln NEB SCH ×6 (03:56→23:24)
[2016-09-21] MEDS: Sodium Chloride 0.9% 10 ML Syringe FLUSH PRN ×2 (03:57→09:14)
[2016-09-21] MEDS: methylPREDNISolone Sodium Succinate 40 MG/1 ML SDV IVPUSH SCH ×3 (03:58→20:47)
[2016-09-21] MEDS: Levothyroxine 125 MCG Tab PO SCH (05:04)
[2016-09-21 07:11] LABS: CHLORIDE,CL 92 mmol/L (101-111); SODIUM,NA 134 mmol/L (135-145)
[2016-09-21] MEDS: Budesonide 0.5 MG/2 ML Neb Susp NEB SCH ×2 (07:28→17:39)
[2016-09-21] MEDS: FORMOTEROL 20 MCG/2 ML INH SCH ×2 (07:29→17:39)
[2016-09-21] MEDS: Levofloxacin/Dextrose 5%-Water 750 MG in Premix Bag 1 BAG IV SCH (09:11)
[2016-09-21] MEDS: TIOTROPIUM BROMIDE INH SCH (09:15)
[2016-09-21] MEDS: Potassium Chloride 10 MEQ Tab.ER PO SCH ×2 (09:18→20:48)
[2016-09-21] MEDS: Chlorthalidone 25 MG Tab PO SCH (09:18)
--- NOTE | 2016-09-21 12:48 | PCM.PN ---
- General Info Date of Service: 09/21/16 Subjective Update: pt did better with sleep last night- oxygen kept at 3 liters per her home routine. breathing improving slowly. + cough minimal sputum. had back pain due to cough- relieved with motrin. gets tachy with activity but no dizziness, cp or near syncope. states having the duo nebs with her pulmicort/formoter works better than her home regiman - taking duo nebs seperate from pul/form Functional Status: Reports: pain controlled, tolerating diet, ambulating, urinating, incentive spirometry - Review of Systems General: Reports: no symptoms Pulmonary: Reports: shortness of breath, cough, sputum Cardiovascular: Reports: dyspnea on exertion, edema (minmal on left leg ) Gastrointestinal: Reports: No symptoms Musculoskeletal: Reports: back pain Skin: Reports: no symptoms - Patient Data Vitals - most recent: Last Vital Signs Temp 36.7 C 09/21/16 11:30 Pulse 122 H 09/21/16 11:34 Resp 28 H 09/21/16 11:30 BP 127/77 09/21/16 11:30 Pulse Ox 95 09/21/16 11:30 Weight - most recent: 79.152 kg I&O - last 24 hours: Intake & Output 09/20/16 09/21/16 09/21/16 22:59 06:59 14:59 Intake Total 9488 011 4235 Output Total 1800 500 Balance -300 0 1080 Lab Results last 24 hrs: Laboratory Results - last 24 hr 09/21/16 Range/Units 06:25 Sodium 134 L (135-145) mmol/L Potassium 3.5 L (3.6-5.0) mmol/L Chloride 92 L (101-111) mmol/L Carbon Dioxide 30.0 (21.0-31.0) mmol/L Anion Gap 15.5 BUN 21 H (7-18) mg/dL Creatinine 0.8 (0.6-1.3) mg/dL Est Cr Clr Drug Dosing 65.63 mL/min Estimated GFR (MDRD) > 60 Glucose 146 H (74-105) mg/dL Calcium 8.7 (8.4-10.2) mg/dl Med Orders - Current: Current Medications Albuterol (Proventil Neb Soln) 0.63 mg NEB Q4HRRT PRN PRN Reason: Dyspnea Albuterol/Ipratropium (Duoneb 3.0-0.5 Mg/3 Ml) 3 ml NEB Q4HRRT [facility] Last Admin: 09/21/16 11:34 Dose: 3 ml Budesonide (Pulmicort) 0.5 mg NEB BIDRT [facility] Last Admin: 09/21/16 07:28 Dose: 0.5 mg Chlorthalidone (Chlorthalidone) 25 mg PO DAILY [facility] Last Admin: 09/21/16 09:18 Dose: 25 mg Enoxaparin Sodium (Lovenox) 40 mg SUBCUT Q24H [facility] Last Admin: 09/20/16 20:20 Dose: 40 mg Levofloxacin/Dextrose 750 mg/ (Premix) 150 mls @ 100 mls/hr IV Q24H [facility] Last Admin: 09/21/16 09:11 Dose: 75 mls/hr Ibuprofen (Motrin) 400 mg PO Q6H PRN PRN Reason: Pain Last Admin: 09/20/16 22:49 Dose: 400 mg Levothyroxine Sodium (Levothyroxine) 125 mcg PO ACBREAKFAST [facility] Last Admin: 09/21/16 05:04 Dose: 125 mcg Methylprednisolone Sodium Succinate (Solu-Medrol) 40 mg IVPUSH Q8H [facility] Last Admin: 09/21/16 03:58 Dose: 40 mg Tiotropium [place] [ Spiriva Respimat] 2 PuffPtom 0 each INH DAILY [facility] Last Admin: 09/21/16 09:15 Dose: 2 each Formoterol [ Perforomist] 20mcg/2ml Ptom 1 each INH BID@0700,1800 [facility] Last Admin: 09/21/16 07:29 Dose: 1 each Potassium Chloride (Klor-Con 10) 20 meq PO DAILY [facility] Last Admin: 09/21/16 09:18 Dose: 20 meq Potassium Chloride (Klor-Con 10) 20 meq PO BEDTIME [facility] Stop: 09/22/16 21:01 Sodium Chloride (Saline Flush) 10 ml FLUSH ASDIRECTED PRN PRN Reason: Keep Vein Open Last Admin: 09/21/16 09:14 Dose: 10 ml Zolpidem Tartrate (Ambien) 5 mg PO BEDTIME PRN PRN Reason: Insomnia Discontinued Medications Albuterol/Ipratropium (Duoneb 3.0-0.5 Mg/3 Ml) 3 ml NEB ONETIME ONE Stop: 09/17/16 14:36 Last Admin: 09/17/16 14:58 Dose: 3 ml Furosemide (Lasix) 40 mg IVPUSH NOW ONE Stop: 09/19/16 09:39 Last Admin: 09/19/16 10:22 Dose: 40 mg Levofloxacin/Dextrose 500 mg/ (Premix) 100 mls @ 100 mls/hr IV ONETIME ONE Stop: 09/17/16 16:39 Last Infusion: 09/17/16 17:22 Dose: 50 mls/hr Potassium Chloride 20 meq/ (Premix) 100 mls @ 50 mls/hr IV ONETIME ONE Stop: 09/17/16 19:21 Last Admin: 09/17/16 17:40 Dose: Not Given Magnesium Sulfate/Dextrose 1 (gm/ Premix) 100 mls @ 100 mls/hr IV ONETIME ONE Stop: 09/17/16 18:13 Last Admin: 09/17/16 18:12 Dose: 100 mls/hr Methylprednisolone Sodium Succinate (Solu-Medrol) 125 mg IVPUSH ONETIME ONE Stop: 09/17/16 14:36 Last Admin: 09/17/16 15:02 Dose: 125 mg Methylprednisolone Sodium Succinate (Solu-Medrol) 60 mg IVPUSH Q8H [facility] Last Admin: 09/17/16 18:24 Dose: Not Given Methylprednisolone Sodium Succinate (Solu-Medrol) 60 mg IVPUSH Q8H [facility] Last Admin: 09/20/16 03:22 Dose: 60 mg Formoterol [ Perforomist] 20mcg/2ml Ptom 1 each INH DAILY [facility] Last Admin: 09/18/16 08:23 Dose: 1 each Potassium Chloride (Klor-Con 10) 20 meq PO ONETIME ONE Stop: 09/17/16 17:35 Last Admin: 09/17/16 18:11 Dose: 20 meq Potassium Chloride (Klor-Con 10) 40 meq PO ONETIME ONE Stop: 09/18/16 09:53 Last Admin: 09/18/16 10:07 Dose: 40 meq Potassium Chloride (Klor-Con 10) 40 meq PO ONETIME ONE Stop: 09/19/16 08:50 Last Admin: 09/19/16 09:53 Dose: 40 meq Potassium Chloride (Klor-Con 10) 20 meq PO ONETIME ONE Stop: 09/19/16 18:09 Last Admin: 09/19/16 18:11 Dose: 20 meq Potassium Chloride (Klor-Con 10) 20 meq PO ONETIME ONE Stop: 09/20/16 12:59 Last Admin: 09/20/16 13:26 Dose: 20 meq - Exam Quality Assessment: supplemental oxygen General: alert, oriented, cooperative, mild distress (with conversation ) HEENT: Pupils equal Lungs: Decreased breath sounds, Other (accessory muscles use with converastion - but is able to speak better today ) Cardiovascular: regular rate, regular rhythm Abdomen: bowel sounds present, soft, no tenderness Extremities: edema (trace left leg ) Skin: warm Psy/Mental Status: alert, normal affect - Problem List & Annotations (1) Bronchitis SNOMED Code(s): 48205906 Code(s): J40 - BRONCHITIS, NOT SPECIFIED ACUTE OR CHRONIC Status: Acute Current Visit: Yes (2) COPD exacerbation SNOMED Code(s): 391801188, 330267612 Code(s): J44.1 - CHRONIC OBSTRUCTIVE PULMONARY DISEASE W (ACUTE) EXACERBATION Status: Acute Current Visit: Yes - Problem List Review Problem List Initiated/Reviewed/Updated: Yes - My Orders Last 24 Hours: My Active Orders 09/20/16 12:00 methylPREDNISolone Sod Succ [Solu-MEDROL] 40 mg IVPUSH Q8H 09/21/16 12:39 Communication Order [RC] ROUTINE 09/21/16 21:00 Potassium Chloride [Klor-Con 10] 20 meq PO BEDTIME 09/22/16 06:00 BASIC METABOLIC PANEL,BMP [CHEM] Routine MAGNESIUM [CHEM] Routine - Plan Plan:: This is a 66 Y/O F with Past Medical history of COPD on Nocturnal oxygen and also use oxygen during the day only if she is out for physical activity, do not use oxygen during the while at rest, other history include Hypothyroidism and chronic Hypokalemia and history of smoking 40 years ( quit 4 years ago) 1. COPD exacerbation with acute on chronic hypoxic respiratory failure - continue solumedrol 40 mg Q8 - started 09/19/16- consider decrease in am - continue IV Levaquin - Continue duoneb every 4 hours trey - Advise to use IS and flutter valve -Titrate NC Oxygen as tolerated and also encourage walking -try to wean resting oxgyen - will likely need oxygen with activiyt- monitor - -cont 3 liters oxgyen NC when sleeping -per home regimen 2. Hypokalemia - Continue Potassium chloride 20meq daily -3.4 this am- can give extra dose again today - give at hS -Recheck Potassium in AM 3. Hypothyroidism - continue synthroid 4. Diverticuolosis - No abdominal Pain ensure regular BM 5. Hypomagnesemia: Pt has receive replacement and Magnesium is acceptable - recheck in am since K+ cont to drop 6. Edema of Extremities: -She had Increased LE swelling and also CXR increased vascular markings -received one dose lasix 40 mg IV X1 -Continue Chlorthalidone 12.5 mg daily 7. back pain -PRN motrin DVT prophylaxis - lovenox code status: full
[2016-09-21] MEDS: Enoxaparin 40 MG/0.4 ML Syringe SUBCUT SCH (20:49)
[2016-09-21] MEDS: Ibuprofen 400 MG Tab PO PRN (23:37)
[2016-09-22] MEDS: Albuterol/Ipratropium 3.0-0.5 MG/3 ML Neb Soln NEB SCH ×5 (03:30→21:24)
[2016-09-22] MEDS: Sodium Chloride 0.9% 10 ML Syringe FLUSH PRN ×3 (03:31→21:24)
[2016-09-22] MEDS: methylPREDNISolone Sodium Succinate 40 MG/1 ML SDV IVPUSH SCH ×3 (03:31→21:25)
[2016-09-22] MEDS: Levothyroxine 125 MCG Tab PO SCH (05:52)
[2016-09-22 06:56] LABS: CHLORIDE,CL 93 mmol/L (101-111); SODIUM,NA 137 mmol/L (135-145)
[2016-09-22] MEDS: Budesonide 0.5 MG/2 ML Neb Susp NEB SCH ×2 (07:14→17:03)
[2016-09-22] MEDS: FORMOTEROL 20 MCG/2 ML INH SCH ×2 (07:15→17:08)
--- NOTE | 2016-09-22 08:30 | PCM.PN ---
- General Info Date of Service: 09/22/16 Subjective Update: pt notes no problems with her antibx. still quite tachy and dyspnic with activity - both improve with rest. Notes almost immediately if the oxygen if off. Functional Status: Reports: pain controlled, tolerating diet, ambulating, urinating - Review of Systems General: Reports: no symptoms HEENT: Reports: sinus congestion (chronic deviated septum ) Pulmonary: Reports: shortness of breath, cough, sputum Cardiovascular: Reports: dyspnea on exertion Gastrointestinal: Reports: No symptoms - Patient Data Vitals - most recent: Last Vital Signs Temp 36.9 C 09/22/16 07:00 Pulse 122 H 09/22/16 08:02 Resp 20 09/22/16 07:00 BP 132/86 09/22/16 07:00 Pulse Ox 93 L 09/22/16 07:00 Weight - most recent: 79.152 kg I&O - last 24 hours: Intake & Output 09/21/16 09/22/16 09/22/16 22:59 06:59 14:59 Intake Total 240 740 Output Total 1950 Balance 240 -1210 Lab Results last 24 hrs: Laboratory Results - last 24 hr 09/22/16 Range/Units 05:50 Sodium 137 (135-145) mmol/L Potassium 3.8 (3.6-5.0) mmol/L Chloride 93 L (101-111) mmol/L Carbon Dioxide 36.0 H (21.0-31.0) mmol/L Anion Gap 11.8 BUN 17 (7-18) mg/dL Creatinine 0.7 (0.6-1.3) mg/dL Est Cr Clr Drug Dosing 75.01 mL/min Estimated GFR (MDRD) > 60 Glucose 157 H (74-105) mg/dL Calcium 8.8 (8.4-10.2) mg/dl Magnesium 2.0 (1.8-2.5) mg/dL Med Orders - Current: Current Medications Albuterol (Proventil Neb Soln) 0.63 mg NEB Q4HRRT PRN PRN Reason: Dyspnea Albuterol/Ipratropium (Duoneb 3.0-0.5 Mg/3 Ml) 3 ml NEB Q4HRRT [facility] Last Admin: 09/22/16 07:14 Dose: 3 ml Budesonide (Pulmicort) 0.5 mg NEB BIDRT [facility] Last Admin: 09/22/16 07:14 Dose: 0.5 mg Chlorthalidone (Chlorthalidone) 25 mg PO DAILY [facility] Last Admin: 09/21/16 09:18 Dose: 25 mg Diltiazem HCl (Cardizem) 30 mg PO Q6HR [facility] Enoxaparin Sodium (Lovenox) 40 mg SUBCUT Q24H [facility] Last Admin: 09/21/16 20:49 Dose: 40 mg Levofloxacin/Dextrose 750 mg/ (Premix) 150 mls @ 100 mls/hr IV Q24H [facility] Last Infusion: 09/21/16 13:24 Dose: Infused Ibuprofen (Motrin) 400 mg PO Q6H PRN PRN Reason: Pain Last Admin: 09/21/16 23:37 Dose: 400 mg Levothyroxine Sodium (Levothyroxine) 125 mcg PO ACBREAKFAST [facility] Last Admin: 09/22/16 05:52 Dose: 125 mcg Methylprednisolone Sodium Succinate (Solu-Medrol) 40 mg IVPUSH Q12H [facility] Tiotropium [place] [ Spiriva Respimat] 2 PuffPtom 0 each INH DAILY [facility] Last Admin: 09/21/16 09:15 Dose: 2 each Formoterol [ Perforomist] 20mcg/2ml Ptom 1 each INH BID@0700,1800 [facility] Last Admin: 09/22/16 07:15 Dose: 1 each Potassium Chloride (Klor-Con 10) 20 meq PO DAILY [facility] Last Admin: 09/21/16 09:18 Dose: 20 meq Potassium Chloride (Klor-Con 10) 20 meq PO BEDTIME [facility] Stop: 09/22/16 21:01 Last Admin: 09/21/16 20:48 Dose: 20 meq Sodium Chloride (Saline Flush) 10 ml FLUSH ASDIRECTED PRN PRN Reason: Keep Vein Open Last Admin: 09/22/16 03:31 Dose: 10 ml Zolpidem Tartrate (Ambien) 5 mg PO BEDTIME PRN PRN Reason: Insomnia Discontinued Medications Albuterol/Ipratropium (Duoneb 3.0-0.5 Mg/3 Ml) 3 ml NEB ONETIME ONE Stop: 09/17/16 14:36 Last Admin: 09/17/16 14:58 Dose: 3 ml Furosemide (Lasix) 40 mg IVPUSH NOW ONE Stop: 09/19/16 09:39 Last Admin: 09/19/16 10:22 Dose: 40 mg Levofloxacin/Dextrose 500 mg/ (Premix) 100 mls @ 100 mls/hr IV ONETIME ONE Stop: 09/17/16 16:39 Last Infusion: 09/17/16 17:22 Dose: 50 mls/hr Potassium Chloride 20 meq/ (Premix) 100 mls @ 50 mls/hr IV ONETIME ONE Stop: 09/17/16 19:21 Last Admin: 09/17/16 17:40 Dose: Not Given Magnesium Sulfate/Dextrose 1 (gm/ Premix) 100 mls @ 100 mls/hr IV ONETIME ONE Stop: 09/17/16 18:13 Last Admin: 09/17/16 18:12 Dose: 100 mls/hr Methylprednisolone Sodium Succinate (Solu-Medrol) 125 mg IVPUSH ONETIME ONE Stop: 09/17/16 14:36 Last Admin: 09/17/16 15:02 Dose: 125 mg Methylprednisolone Sodium Succinate (Solu-Medrol) 60 mg IVPUSH Q8H [facility] Last Admin: 09/17/16 18:24 Dose: Not Given Methylprednisolone Sodium Succinate (Solu-Medrol) 60 mg IVPUSH Q8H [facility] Last Admin: 09/20/16 03:22 Dose: 60 mg Methylprednisolone Sodium Succinate (Solu-Medrol) 40 mg IVPUSH Q8H [facility] Last Admin: 09/22/16 03:31 Dose: 40 mg Formoterol [ Perforomist] 20mcg/2ml Ptom 1 each INH DAILY [facility] Last Admin: 09/18/16 08:23 Dose: 1 each Potassium Chloride (Klor-Con 10) 20 meq PO ONETIME ONE Stop: 09/17/16 17:35 Last Admin: 09/17/16 18:11 Dose: 20 meq Potassium Chloride (Klor-Con 10) 40 meq PO ONETIME ONE Stop: 09/18/16 09:53 Last Admin: 09/18/16 10:07 Dose: 40 meq Potassium Chloride (Klor-Con 10) 40 meq PO ONETIME ONE Stop: 09/19/16 08:50 Last Admin: 09/19/16 09:53 Dose: 40 meq Potassium Chloride (Klor-Con 10) 20 meq PO ONETIME ONE Stop: 09/19/16 18:09 Last Admin: 09/19/16 18:11 Dose: 20 meq Potassium Chloride (Klor-Con 10) 20 meq PO ONETIME ONE Stop: 09/20/16 12:59 Last Admin: 09/20/16 13:26 Dose: 20 meq - Exam Quality Assessment: supplemental oxygen General: alert, oriented, cooperative, no acute distress Lungs: Decreased breath sounds, Other (SOB with longer converstation ) Cardiovascular: regular rate, regular rhythm Abdomen: bowel sounds present, soft, no tenderness Extremities: no edema Psy/Mental Status: alert, normal affect - Problem List & Annotations (1) Bronchitis SNOMED Code(s): 07158266 Code(s): J40 - BRONCHITIS, NOT SPECIFIED ACUTE OR CHRONIC Status: Acute Current Visit: Yes (2) COPD exacerbation SNOMED Code(s): 573262074, 376155853 Code(s): J44.1 - CHRONIC OBSTRUCTIVE PULMONARY DISEASE W (ACUTE) EXACERBATION Status: Acute Current Visit: Yes - Problem List Review Problem List Initiated/Reviewed/Updated: Yes - My Orders Last 24 Hours: My Active Orders 09/21/16 12:39 Communication Order [RC] 08,20 09/21/16 17:52 Antiembolic Devices [RC] PER UNIT ROUTINE CLOTILDE Hose [Antiembolic Hose] [OM.PC] Routine 09/21/16 21:00 Potassium Chloride [Klor-Con 10] 20 meq PO BEDTIME 09/22/16 09:00 methylPREDNISolone Sod Succ [Solu-MEDROL] 40 mg IVPUSH Q12H 09/22/16 12:00 Diltiazem [Cardizem] 30 mg PO Q6HR - Plan Plan:: This is a 66 Y/O F with Past Medical history of COPD on Nocturnal oxygen and also use oxygen during the day only if she is out for physical activity, do not use oxygen during the while at rest, other history include Hypothyroidism and chronic Hypokalemia and history of smoking 40 years ( quit 4 years ago) 1. COPD exacerbation with acute on chronic hypoxic respiratory failure - continue solumedrol decrease to 40 mg Q12 - - continue IV Levaquin - Continue duoneb every 4 hours trey - change to daytime yulia QID - Advise to use IS and flutter valve -Titrate NC Oxygen as tolerated and also encourage walking -try to wean resting oxgyen - will likely need oxygen with activiyt- monitor - -cont 3 liters oxgyen NC when sleeping -per home regimen Tachycardia -due to the COPD/hyoxia -will add cardizem 30 mg Q6 - monitor pulse /pressures 2. Hypokalemia - improved - Continue Potassium chloride 20meq daily - 3.8 this am 3. Hypothyroidism - continue synthroid 4. Diverticuolosis - No abdominal Pain ensure regular BM 5. Hypomagnesemia: Pt has receive replacement and Magnesium is acceptable - recheck still nl range - 2.0 6. Edema of Extremities: -She had Increased LE swelling and also CXR increased vascular markings -received one dose lasix 40 mg IV X1 -Continue Chlorthalidone 12.5 mg daily 7. back pain -PRN motrin DVT prophylaxis - lovenox code status: full
[2016-09-22] MEDS: Chlorthalidone 25 MG Tab PO SCH (08:50)
[2016-09-22] MEDS: Potassium Chloride 10 MEQ Tab.ER PO SCH ×2 (08:51→21:21)
[2016-09-22] MEDS: TIOTROPIUM BROMIDE INH SCH (08:55)
[2016-09-22] MEDS: Levofloxacin/Dextrose 5%-Water 750 MG in Premix Bag 1 BAG IV SCH (09:22)
[2016-09-22] MEDS: Diltiazem IR 30 MG Tab PO SCH ×3 (11:36→23:22)
[2016-09-22] MEDS: Enoxaparin 40 MG/0.4 ML Syringe SUBCUT SCH (21:19)
[2016-09-22] MEDS: Ibuprofen 400 MG Tab PO PRN (21:22)
[2016-09-23] MEDS: Levothyroxine 125 MCG Tab PO SCH (05:41)
[2016-09-23] MEDS: Diltiazem IR 30 MG Tab PO SCH ×3 (05:41→18:28)
[2016-09-23] MEDS: Budesonide 0.5 MG/2 ML Neb Susp NEB SCH ×2 (07:30→17:56)
[2016-09-23] MEDS: Albuterol/Ipratropium 3.0-0.5 MG/3 ML Neb Soln NEB SCH ×4 (07:30→21:04)
[2016-09-23] MEDS: FORMOTEROL 20 MCG/2 ML INH SCH ×2 (07:37→17:56)
[2016-09-23] MEDS: TIOTROPIUM BROMIDE INH SCH (09:51)
[2016-09-23] MEDS: Chlorthalidone 25 MG Tab PO SCH (09:52)
[2016-09-23] MEDS: Potassium Chloride 10 MEQ Tab.ER PO SCH (09:53)
[2016-09-23] MEDS: Sodium Chloride 0.9% 10 ML Syringe FLUSH PRN (09:54)
[2016-09-23] MEDS: methylPREDNISolone Sodium Succinate 40 MG/1 ML SDV IVPUSH SCH ×2 (09:57→21:05)
[2016-09-23] MEDS: Levofloxacin/Dextrose 5%-Water 750 MG in Premix Bag 1 BAG IV SCH (10:00)
[2016-09-23] MEDS ORDERED: Codeine/guaiFENesin 100-10 MG/5 ML Syrup 5 ML Cup PO PRN (11:10)
--- NOTE | 2016-09-23 13:33 | PCM.PN ---
- General Info Date of Service: 09/23/16 Admission Dx/Problem (Free Text): Admission Diagnosis/Problem Admission Diagnosis/Problem Dyspnea/Cough/Increased shortness of Breath Subjective Update: pt notes cont slow improved improvement in her breathing iwth the nebs/ steroids. notes that her pulse does not get nearly as elevated on the cardzem. tolerating cardizem well. no hypotension. no f/c . cont bronchial cough. hasnt taken anything for cough. -apparently hasnt had an y PRNs ordered. states alek fan do not work for her - willing to use robitussin and codiene. cont increase in her dyspnea with coughing spellings Functional Status: Reports: pain controlled, tolerating diet, ambulating (whort distances ) - Review of Systems General: Reports: fatigue HEENT: Reports: sinus congestion Pulmonary: Reports: shortness of breath, cough, sputum Cardiovascular: Reports: dyspnea on exertion Gastrointestinal: Reports: No symptoms Genitourinary: Reports: no symptoms Musculoskeletal: Reports: other (muscle pain in right axilla- liekly from coughing ) Skin: Reports: no symptoms - Patient Data Vitals - most recent: Last Vital Signs Temp 36.8 C 09/23/16 07:00 Pulse 98 09/23/16 12:19 Resp 20 09/23/16 07:00 BP 121/70 09/23/16 07:00 Pulse Ox 94 L 09/23/16 07:00 Weight - most recent: 79.152 kg I&O - last 24 hours: Intake & Output 09/22/16 09/23/16 09/23/16 22:59 06:59 14:59 Intake Total 500 250 Output Total 1800 1200 Balance -1300 -950 Med Orders - Current: Current Medications Albuterol (Proventil Neb Soln) 0.63 mg NEB Q4HRRT PRN PRN Reason: Dyspnea Albuterol/Ipratropium (Duoneb 3.0-0.5 Mg/3 Ml) 3 ml NEB QIDRT [facility] Last Admin: 09/23/16 11:56 Dose: 3 ml Budesonide (Pulmicort) 0.5 mg NEB BIDRT [facility] Last Admin: 09/23/16 07:30 Dose: 0.5 mg Chlorthalidone (Chlorthalidone) 25 mg PO DAILY [facility] Last Admin: 09/23/16 09:52 Dose: 25 mg Diltiazem HCl (Cardizem) 30 mg PO Q6HR [facility] Last Admin: 09/23/16 11:56 Dose: 30 mg Enoxaparin Sodium (Lovenox) 40 mg SUBCUT Q24H [facility] Last Admin: 09/22/16 21:19 Dose: 40 mg Guaifenesin (Robitussin) 100 mg PO 0630,1730 [facility] Guaifenesin/Codeine Phosphate (Robitussin Ac) 5 ml PO Q6H PRN PRN Reason: Cough Levofloxacin/Dextrose 750 mg/ (Premix) 150 mls @ 100 mls/hr IV Q24H [facility] Last Admin: 09/23/16 10:00 Dose: 75 mls/hr Ibuprofen (Motrin) 400 mg PO Q6H PRN PRN Reason: Pain Last Admin: 09/22/16 21:22 Dose: 400 mg Levothyroxine Sodium (Levothyroxine) 125 mcg PO ACBREAKFAST [facility] Last Admin: 09/23/16 05:41 Dose: 125 mcg Methylprednisolone Sodium Succinate (Solu-Medrol) 40 mg IVPUSH Q12H [facility] Last Admin: 09/23/16 09:57 Dose: 40 mg Tiotropium [place] [ Spiriva Respimat] 2 PuffPtom 0 each INH DAILY [facility] Last Admin: 09/23/16 09:51 Dose: 2 each Formoterol [ Perforomist] 20mcg/2ml Ptom 1 each INH BID@0700,1800 [facility] Last Admin: 09/23/16 07:37 Dose: 1 each Potassium Chloride (Klor-Con 10) 20 meq PO DAILY [facility] Last Admin: 09/23/16 09:53 Dose: 20 meq Promethazine HCl/Codeine (Phenergan With Codeine) 5 ml PO Q4HR [facility] Sodium Chloride (Saline Flush) 10 ml FLUSH ASDIRECTED PRN PRN Reason: Keep Vein Open Last Admin: 09/23/16 09:54 Dose: 10 ml Discontinued Medications Albuterol/Ipratropium (Duoneb 3.0-0.5 Mg/3 Ml) 3 ml NEB ONETIME ONE Stop: 09/17/16 14:36 Last Admin: 09/17/16 14:58 Dose: 3 ml Albuterol/Ipratropium (Duoneb 3.0-0.5 Mg/3 Ml) 3 ml NEB Q4HRRT [facility] Last Admin: 09/22/16 11:20 Dose: 3 ml Furosemide (Lasix) 40 mg IVPUSH NOW ONE Stop: 09/19/16 09:39 Last Admin: 09/19/16 10:22 Dose: 40 mg Levofloxacin/Dextrose 500 mg/ (Premix) 100 mls @ 100 mls/hr IV ONETIME ONE Stop: 09/17/16 16:39 Last Infusion: 09/17/16 17:22 Dose: 50 mls/hr Potassium Chloride 20 meq/ (Premix) 100 mls @ 50 mls/hr IV ONETIME ONE Stop: 09/17/16 19:21 Last Admin: 09/17/16 17:40 Dose: Not Given Magnesium Sulfate/Dextrose 1 (gm/ Premix) 100 mls @ 100 mls/hr IV ONETIME ONE Stop: 09/17/16 18:13 Last Admin: 09/17/16 18:12 Dose: 100 mls/hr Methylprednisolone Sodium Succinate (Solu-Medrol) 125 mg IVPUSH ONETIME ONE Stop: 09/17/16 14:36 Last Admin: 09/17/16 15:02 Dose: 125 mg Methylprednisolone Sodium Succinate (Solu-Medrol) 60 mg IVPUSH Q8H [facility] Last Admin: 09/17/16 18:24 Dose: Not Given Methylprednisolone Sodium Succinate (Solu-Medrol) 60 mg IVPUSH Q8H [facility] Last Admin: 09/20/16 03:22 Dose: 60 mg Methylprednisolone Sodium Succinate (Solu-Medrol) 40 mg IVPUSH Q8H [facility] Last Admin: 09/22/16 03:31 Dose: 40 mg Formoterol [ Perforomist] 20mcg/2ml Ptom 1 each INH DAILY [facility] Last Admin: 09/18/16 08:23 Dose: 1 each Potassium Chloride (Klor-Con 10) 20 meq PO ONETIME ONE Stop: 09/17/16 17:35 Last Admin: 09/17/16 18:11 Dose: 20 meq Potassium Chloride (Klor-Con 10) 40 meq PO ONETIME ONE Stop: 09/18/16 09:53 Last Admin: 09/18/16 10:07 Dose: 40 meq Potassium Chloride (Klor-Con 10) 40 meq PO ONETIME ONE Stop: 09/19/16 08:50 Last Admin: 09/19/16 09:53 Dose: 40 meq Potassium Chloride (Klor-Con 10) 20 meq PO ONETIME ONE Stop: 09/19/16 18:09 Last Admin: 09/19/16 18:11 Dose: 20 meq Potassium Chloride (Klor-Con 10) 20 meq PO ONETIME ONE Stop: 09/20/16 12:59 Last Admin: 09/20/16 13:26 Dose: 20 meq Potassium Chloride (Klor-Con 10) 20 meq PO BEDTIME [facility] Stop: 09/22/16 21:01 Last Admin: 09/22/16 21:21 Dose: 20 meq Zolpidem Tartrate (Ambien) 5 mg PO BEDTIME PRN PRN Reason: Insomnia - Exam Quality Assessment: supplemental oxygen General: alert, oriented, cooperative Lungs: Decreased breath sounds, Other (accessory muscles with coughing spells, longer conversation ) Cardiovascular: regular rhythm, tachycardia Abdomen: bowel sounds present, soft, no tenderness Extremities: edema (trace ) Skin: warm - Problem List & Annotations (1) Bronchitis SNOMED Code(s): 33620941 Code(s): J40 - BRONCHITIS, NOT SPECIFIED ACUTE OR CHRONIC Status: Acute Current Visit: Yes (2) COPD exacerbation SNOMED Code(s): 095898696, 945752027 Code(s): J44.1 - CHRONIC OBSTRUCTIVE PULMONARY DISEASE W (ACUTE) EXACERBATION Status: Acute Current Visit: Yes - Problem List Review Problem List Initiated/Reviewed/Updated: Yes - My Orders Last 24 Hours: My Active Orders 09/22/16 17:00 Albuterol/Ipratropium [DuoNeb 3.0-0.5 MG/3 ML] 3 ml NEB QIDRT 09/23/16 11:10 Codeine/guaiFENesin [Robitussin AC] 5 ml PO Q6H PRN 09/23/16 14:00 Codeine/Promethazine [Phenergan with Codeine] 5 ml PO Q4HR 09/23/16 17:30 guaiFENesin [Robitussin] 100 mg PO 0630,1730 - Plan Plan:: This is a 66 Y/O F with Past Medical history of COPD on Nocturnal oxygen and also use oxygen during the day only if she is out for physical activity, do not use oxygen during the while at rest, other history include Hypothyroidism and chronic Hypokalemia and history of smoking 40 years ( quit 4 years ago) 1. COPD exacerbation with acute on chronic hypoxic respiratory failure - continue solumedrol 40 mg Q12 - consider change to prednisone in am - continue IV Levaquin - Continue duoneb QID - cpntuse IS and flutter valve -Titrate NC Oxygen as tolerated and also encourage walking -try to wean resting oxgyen - will likely need oxygen with activiyt- monitor - -cont 3 liters oxgyen NC when sleeping -per home regimen Tachycardia -due to the COPD/hyoxia -cont cardizem 30 mg Q6 - change to long acting for am 2. Hypokalemia - improved - Continue Potassium chloride 20meq daily - 3.8 this am - recheck tomorrow 3. Hypothyroidism - continue synthroid 4. Diverticuolosis - No abdominal Pain ensure regular BM 5. Hypomagnesemia: Pt has receive replacement and Magnesium is acceptable - recheck was still nl range - 2.0 6. Edema of Extremities: -She had Increased LE swelling and also CXR increased vascular markings -received one dose lasix 40 mg IV X1 -Continue Chlorthalidone 12.5 mg daily 7. back pain -PRN motrin DVT prophylaxis - lovenox code status: full
[2016-09-23] MEDS: Codeine/Promethazine 10-6.25 MG/5 ML Syrup 5 ML UD Cup PO SCH ×2 (14:12→18:28)
[2016-09-23] MEDS: guaiFENesin 100 MG/5 ML Soln 5 ML UD Cup PO SCH (17:31)
[2016-09-23] MEDS: Enoxaparin 40 MG/0.4 ML Syringe SUBCUT SCH (21:04)
[2016-09-23] MEDS: Ibuprofen 400 MG Tab PO PRN (21:05)
[2016-09-23] MEDS ORDERED: Codeine/Promethazine 10-6.25 MG/5 ML Syrup 5 ML UD Cup PO PRN (21:16)
[2016-09-23] MEDS ORDERED: Fluticasone Propionate Nasal Spray 16 GM Bottle NASBOTH PRN (21:30)
[2016-09-24] MEDS: Diltiazem IR 30 MG Tab PO SCH ×3 (02:21→11:35)
[2016-09-24] MEDS: Levothyroxine 125 MCG Tab PO SCH (06:05)
[2016-09-24] MEDS: guaiFENesin 100 MG/5 ML Soln 5 ML UD Cup PO SCH (06:26)
[2016-09-24 07:02] LABS: CHLORIDE,CL 91 mmol/L (101-111); SODIUM,NA 136 mmol/L (135-145)
[2016-09-24] MEDS: Albuterol/Ipratropium 3.0-0.5 MG/3 ML Neb Soln NEB SCH ×2 (07:12→11:43)
[2016-09-24] MEDS: Budesonide 0.5 MG/2 ML Neb Susp NEB SCH (07:12)
[2016-09-24] MEDS: FORMOTEROL 20 MCG/2 ML INH SCH (07:12)
[2016-09-24] MEDS ORDERED: predniSONE 20 MG Tab PO SCH (08:00)
[2016-09-24] MEDS: Chlorthalidone 25 MG Tab PO SCH (08:35)
[2016-09-24] MEDS: Potassium Chloride 10 MEQ Tab.ER PO SCH (08:36)
[2016-09-24] MEDS: Sodium Chloride 0.9% 10 ML Syringe FLUSH PRN ×2 (08:59→11:40)
[2016-09-24] MEDS: Levofloxacin/Dextrose 5%-Water 750 MG in Premix Bag 1 BAG IV SCH (09:00)
[2016-09-24] MEDS: TIOTROPIUM BROMIDE INH SCH (09:49)
[2016-09-24 12:06] VITALS: BP 128/60
--- NOTE | 2016-09-24 12:28 | PCM.DCSUM1 ---
Discharge Summary - Hospital Course HPI Initial Comments: Patient is a 66 year old female was admitted becuase of shortness of breath. Started to noted this last week, associated with dry cough. Temperature at home around 99F which for her is already high. No rhinorrhea, nor sore throat. no chest nor PND, though she uses nocturnal oxygen. minimal ankle swelling. started to have audible wheezing today. no exposure to sick contacts. Has baseline severe COPD. last course of antibiotics was last month after finishing 2.5 weeks of doxycycline. becuase of the flare up, she came in to ER. - Discharge Data Discharge Date: 09/24/16 Discharge Disposition: Home, Self-Care 01 Condition: Good - Discharge Diagnosis/Problem(s) (1) Bronchitis SNOMED Code(s): 48194400 ICD Code: J40 - BRONCHITIS, NOT SPECIFIED ACUTE OR CHRONIC Status: Acute Current Visit: Yes (2) COPD exacerbation SNOMED Code(s): 589468401, 152473206 ICD Code: J44.1 - CHRONIC OBSTRUCTIVE PULMONARY DISEASE W (ACUTE) EXACERBATION Status: Acute Current Visit: Yes - Patient Summary/Data Hospital Course: 1. COPD exacerbation with acute on chronic hypoxic respiratory failure - pt responded well to aggressive pulm toilet with IV steroids, scheduled and PRN Duonebs, pulmicort, formoterol, IS /flutter and antibx. - pt has improved to level safe to d/c home on tapering prednisone, cont nebs (as above) and oral antibx. PT received levaquin in hospital but does not tolerate it as PO. Also has multiple antibx allergies. Recently responded well to Bactrim DS so will d/c on 7 days course - -per walking desat study on day of discharge- 09/24/16- pt now requires oxgyen 2 liters with activity in adddtion to her prior 3 liters at night/sleep. She is active in the home and would benefit from portable oxygen. hypoxia due to COPD and acute bronchtiis Tachycardia -due to the COPD/hyoxia -pt improved on cardizem. pressures stable - will d/c on long acting cardizem 180 mg 2. Hypokalemia -resolved - Continue Potassium chloride 20meq daily - 3.6 on day of discharge -recommend f/u potassium at clinic appoint as pt will be on robitussin and bactrim- however, has h/o LOW potassium so should tolerate fine 3. Hypothyroidism - continue synthroid 4. Diverticuolosis - No abdominal Pain ensure regular BM 5. Hypomagnesemia: resolved Pt has receive replacement and Magnesium is acceptable - recheck was still nl range - 2.0 6. Edema of Extremities: -She had Increased LE swelling and also CXR increased vascular markings -received one dose lasix 40 mg IV X1 - edema resolved -Continue Chlorthalidone 12.5 mg daily 7. back pain/ abd muscle pain- from cough -PRN tylenol - avoid morphine - Patient Instructions Diet: Heart Healthy Diet Activity: As Tolerated Driving: May Drive Today Showering/Bathing: May Shower Notify Provider of: Fever, Increased Pain, Nausea and/or Vomiting Other/Special Instructions: oxgyen 3 liters during sleep, 2 liters with activity ; none at rest. f/u with Lea Pastrana NP in clinic on September 28 at 8:30AM - Discharge Plan Prescriptions/Med Rec: Codeine/Promethazine [Phenergan with Codeine] 5 ml PO Q4HR PRN #150 ml PRN Reason: Cough Albuterol/Ipratropium [DuoNeb 3.0-0.5 MG/3 ML] 3 ml NEB QIDRT #120 neb Codeine/guaiFENesin [Robitussin AC] 5 ml PO Q6H PRN #300 ml PRN Reason: Cough Diltiazem [Cardizem CD] 180 mg PO DAILY #30 cap.cd Prednisone [IJD: Prednisone] 10 mg PO DAILY #21 tab Sulfamethoxazole/Trimethoprim [Bactrim Ds Tablet] 1 each PO BID #14 tablet Home Medications: Home Meds Albuterol [Proair HFA] 2 puff INH Q4HR 09/17/16 [History] Albuterol [Proventil Neb Soln] 1 unit INH DAILY 09/17/16 [History] Chlorthalidone 25 mg PO 0800 09/17/16 [History] Fluticasone Propionate [Flonase] 0 gm NASBOTH DAILY PRN 09/17/16 [History] Formoterol [Perforomist] 2 ml INH BID 09/17/16 [History] Ibuprofen 200 mg PO ASDIRECTED 09/17/16 [History] Levothyroxine Sodium 125 mcg PO DAILY 09/17/16 [History] Potassium Chloride 20 meq PO DAILY 09/17/16 [History] Tiotropium Valders [Spiriva Respimat] 2 puff INH DAILY 09/17/16 [History] atorvaSTATin [Lipitor] 5 mg PO BEDTIME 09/17/16 [History] Albuterol/Ipratropium [DuoNeb 3.0-0.5 MG/3 ML] 3 ml NEB QIDRT #120 neb 09/24/16 [Rx] Codeine/Promethazine [Phenergan with Codeine] 5 ml PO Q4HR PRN #150 ml 09/24/16 [Rx] Codeine/guaiFENesin [Robitussin AC] 5 ml PO Q6H PRN #300 ml 09/24/16 [Rx] Diltiazem [Cardizem CD] 180 mg PO DAILY #30 cap.cd 09/24/16 [Rx] Prednisone [IJD: Prednisone] 10 mg PO DAILY #21 tab 09/24/16 [Rx] Sulfamethoxazole/Trimethoprim [Bactrim Ds Tablet] 1 each PO BID #14 tablet 09/24 [Rx] guaiFENesin [Robitussin] 100 mg PO 0630,1730 cup 09/24/16 [Rx] Patient Handouts: Chronic Obstructive Pulmonary Disease Exacerbation, Easy-to- Read, Hypoxemia - General Info Date of Service: 09/24/16 Subjective Update: pt states that her breathing /cough have improved with nebs, steroids , antibx. She has less sputum and chest congestions. Notes she still has GALEANO but significantly improved. She has no f/c. tolerating diet and ambualting well with oxygen. Feels safe going home. Functional Status: Reports: pain controlled, tolerating diet, ambulating, urinating - Review of Systems General: Reports: no symptoms HEENT: Reports: sinus congestion Pulmonary: Reports: shortness of breath, cough, sputum Cardiovascular: Reports: palpitations (with activity ), dyspnea on exertion Gastrointestinal: Reports: No symptoms Genitourinary: Reports: no symptoms Musculoskeletal: Reports: other (abd muscle/right inferior axilla muscle pain due to coughing ) Skin: Reports: no symptoms Neurological: Reports: no symptoms Psychiatric: Reports: no symptoms - Patient Data Vitals - Most Recent: Last Vital Signs Temp 35.7 C 09/24/16 12:00 Pulse 116 H 09/24/16 12:00 Resp 20 09/24/16 12:00 BP 128/60 09/24/16 12:00 Pulse Ox 93 L 09/24/16 12:00 Weight - Most Recent: 79.152 kg I&O - Last 24 hours: Intake & Output 09/23/16 09/24/16 09/24/16 22:59 06:59 14:59 Intake Total 640 1307 Output Total 1400 Balance -760 1307 Lab Results - Last 24 hrs: Laboratory Results - last 24 hr 09/24/16 Range/Units 06:33 Sodium 136 (135-145) mmol/L Potassium 3.6 (3.6-5.0) mmol/L Chloride 91 L (101-111) mmol/L Carbon Dioxide 35.0 H (21.0-31.0) mmol/L Anion Gap 13.6 BUN 18 (7-18) mg/dL Creatinine 0.8 (0.6-1.3) mg/dL Est Cr Clr Drug Dosing 65.63 mL/min Estimated GFR (MDRD) > 60 Glucose 153 H (74-105) mg/dL Calcium 8.7 (8.4-10.2) mg/dl Med Orders - Current: Current Medications Albuterol (Proventil Neb Soln) 0.63 mg NEB Q4HRRT PRN PRN Reason: Dyspnea Albuterol/Ipratropium (Duoneb 3.0-0.5 Mg/3 Ml) 3 ml NEB QIDRT [facility] Last Admin: 09/24/16 11:43 Dose: 3 ml Budesonide (Pulmicort) 0.5 mg NEB BIDRT [facility] Last Admin: 09/24/16 07:12 Dose: 0.5 mg Chlorthalidone (Chlorthalidone) 25 mg PO DAILY [facility] Last Admin: 09/24/16 08:35 Dose: 25 mg Diltiazem HCl (Cardizem) 30 mg PO Q6HR [facility] Last Admin: 09/24/16 11:35 Dose: 30 mg Enoxaparin Sodium (Lovenox) 40 mg SUBCUT Q24H [facility] Last Admin: 09/23/16 21:04 Dose: 40 mg Fluticasone Propionate (Flonase) 0 gm NASBOTH DAILY PRN PRN Reason: allergies Last Admin: 09/23/16 21:44 Dose: 1 spray Guaifenesin (Robitussin) 100 mg PO 0630,1730 [facility] Last Admin: 09/24/16 06:26 Dose: Not Given Guaifenesin/Codeine Phosphate (Robitussin Ac) 5 ml PO Q6H PRN PRN Reason: Cough Last Admin: 09/24/16 06:06 Dose: 5 ml Levofloxacin/Dextrose 750 mg/ (Premix) 150 mls @ 100 mls/hr IV Q24H [facility] Last Admin: 09/24/16 09:00 Dose: 50 mls/hr Ibuprofen (Motrin) 400 mg PO Q6H PRN PRN Reason: Pain Last Admin: 09/23/16 21:05 Dose: 400 mg Levothyroxine Sodium (Levothyroxine) 125 mcg PO ACBREAKFAST [facility] Last Admin: 09/24/16 06:05 Dose: 125 mcg Tiotropium Valders [ Spiriva Respimat] 2 PuffPtom 0 each INH DAILY [facility] Last Admin: 09/24/16 09:49 Dose: 2 each Formoterol [ Perforomist] 20mcg/2ml Ptom 1 each INH BID@0700,1800 [facility] Last Admin: 09/24/16 07:12 Dose: 1 each Potassium Chloride (Klor-Con 10) 20 meq PO DAILY [facility] Last Admin: 09/24/16 08:36 Dose: 20 meq Prednisone (Prednisone) 40 mg PO WITHBREAKFAST [facility] Last Admin: 09/24/16 08:35 Dose: 40 mg Promethazine HCl/Codeine (Phenergan With Codeine) 5 ml PO Q4HR PRN PRN Reason: Cough Last Admin: 09/23/16 21:43 Dose: 5 ml Sodium Chloride (Saline Flush) 10 ml FLUSH ASDIRECTED PRN PRN Reason: Keep Vein Open Last Admin: 09/24/16 11:40 Dose: 10 ml Discontinued Medications Albuterol/Ipratropium (Duoneb 3.0-0.5 Mg/3 Ml) 3 ml NEB ONETIME ONE Stop: 09/17/16 14:36 Last Admin: 09/17/16 14:58 Dose: 3 ml Albuterol/Ipratropium (Duoneb 3.0-0.5 Mg/3 Ml) 3 ml NEB Q4HRRT [facility] Last Admin: 09/22/16 11:20 Dose: 3 ml Furosemide (Lasix) 40 mg IVPUSH NOW ONE Stop: 09/19/16 09:39 Last Admin: 09/19/16 10:22 Dose: 40 mg Levofloxacin/Dextrose 500 mg/ (Premix) 100 mls @ 100 mls/hr IV ONETIME ONE Stop: 09/17/16 16:39 Last Infusion: 09/17/16 17:22 Dose: 50 mls/hr Potassium Chloride 20 meq/ (Premix) 100 mls @ 50 mls/hr IV ONETIME ONE Stop: 09/17/16 19:21 Last Admin: 09/17/16 17:40 Dose: Not Given Magnesium Sulfate/Dextrose 1 (gm/ Premix) 100 mls @ 100 mls/hr IV ONETIME ONE Stop: 09/17/16 18:13 Last Admin: 09/17/16 18:12 Dose: 100 mls/hr Methylprednisolone Sodium Succinate (Solu-Medrol) 125 mg IVPUSH ONETIME ONE Stop: 09/17/16 14:36 Last Admin: 09/17/16 15:02 Dose: 125 mg Methylprednisolone Sodium Succinate (Solu-Medrol) 60 mg IVPUSH Q8H [facility] Last Admin: 09/17/16 18:24 Dose: Not Given Methylprednisolone Sodium Succinate (Solu-Medrol) 60 mg IVPUSH Q8H [facility] Last Admin: 09/20/16 03:22 Dose: 60 mg Methylprednisolone Sodium Succinate (Solu-Medrol) 40 mg IVPUSH Q8H [facility] Last Admin: 09/22/16 03:31 Dose: 40 mg Methylprednisolone Sodium Succinate (Solu-Medrol) 40 mg IVPUSH Q12H [facility] Last Admin: 09/23/16 21:05 Dose: 40 mg Formoterol [ Perforomist] 20mcg/2ml Ptom 1 each INH DAILY [facility] Last Admin: 09/18/16 08:23 Dose: 1 each Potassium Chloride (Klor-Con 10) 20 meq PO ONETIME ONE Stop: 09/17/16 17:35 Last Admin: 09/17/16 18:11 Dose: 20 meq Potassium Chloride (Klor-Con 10) 40 meq PO ONETIME ONE Stop: 09/18/16 09:53 Last Admin: 09/18/16 10:07 Dose: 40 meq Potassium Chloride (Klor-Con 10) 40 meq PO ONETIME ONE Stop: 09/19/16 08:50 Last Admin: 09/19/16 09:53 Dose: 40 meq Potassium Chloride (Klor-Con 10) 20 meq PO ONETIME ONE Stop: 09/19/16 18:09 Last Admin: 09/19/16 18:11 Dose: 20 meq Potassium Chloride (Klor-Con 10) 20 meq PO ONETIME ONE Stop: 09/20/16 12:59 Last Admin: 09/20/16 13:26 Dose: 20 meq Potassium Chloride (Klor-Con 10) 20 meq PO BEDTIME [facility] Stop: 09/22/16 21:01 Last Admin: 09/22/16 21:21 Dose: 20 meq Promethazine HCl/Codeine (Phenergan With Codeine) 5 ml PO Q4HR [facility] Last Admin: 09/23/16 18:28 Dose: 5 ml Zolpidem Tartrate (Ambien) 5 mg PO BEDTIME PRN PRN Reason: Insomnia - Exam Quality Assessment: Reports: supplemental oxygen General: Reports: alert, oriented, cooperative, no acute distress HEENT: Reports: Pupils equal Lungs: Reports: Normal respiratory effort, Decreased breath sounds, Crackles ( at bases ) Cardiovascular: Reports: regular rhythm, tachycardia Abdomen: Reports: bowel sounds present, soft, no tenderness Extremities: Reports: edema (trace pedal ) Skin: Reports: warm Neurological: Reports: normal speech Psy/Mental Status: Reports: alert, normal affect, normal mood *Q Meaningful Use (DIS) - VTE *Q VTE Criteria *Q: - Stroke *Q Stroke Criteria *Q: - AMI *Q AMI Criteria *Q:
== END 2016-09-24 14:05 | disposition home or self-care (01) | DRG 190 ==
LOC: DL.ED 14:26 → DL.MS 16:21
PROVIDERS: ADMIT Internal Medicine; ATTEND Internal Medicine
DX: J44.1 Chronic obstructive pulmonary disease with (acute) exacerbation (principal); J96.21 Acute and chronic respiratory failure with hypoxia; I10 Essential (primary) hypertension; E03.9 Hypothyroidism, unspecified; Z87.891 Personal history of nicotine dependence; E87.6 Hypokalemia; K57.90 Diverticulosis of intestine, part unspecified, without perforation or abscess without bleeding; J40 Bronchitis, not specified as acute or chronic; E83.42 Hypomagnesemia; R60.9 Edema, unspecified; M54.9 Dorsalgia, unspecified
CPT/HCPCS: 36415; 71010; 80053; 83605; 83735; 85025; 87040; 96365; 99285; J1956; J2930; 80048; 94640; 94761; 99284; A9270-GY; J1650; J1940; J2920; J3475; J7050

== ENCOUNTER 2024-11-06 13:22 | Inpatient (IN) | payer MEDICARE, BC ==
[2024-11-06] MEDS ORDERED: Sodium Chloride 0.9% 10 ML Syringe FLUSH PRN (13:39)
[2024-11-06] MEDS: Albuterol/Ipratropium 3.0-0.5 MG/3 ML Neb Soln NEB ONE (13:51)
[2024-11-06] MEDS: methylPREDNISolone Sodium Succinate 125 MG/2 ML SDV IVPUSH ONE (13:51)
[2024-11-06 14:01] LABS: HEMATOCRIT 43.2 % (37.0-47.0); HEMOGLOBIN 14.8 g/dL (12.0-16.0); MEAN CORPUSCULAR HGB CONC 34.3 g/dL (33.0-35.0); MEAN CORPUSCULAR VOLUME 96.2 fL (80-100); PLATELET COUNT,PLT 263 10^3/uL (150-450); RED BLOOD CELL COUNT 4.49 10^6/uL (4.2-5.4); WHITE BLOOD CELL COUNT,WBC 9.1 10^3/uL (5.0-10.0)
[2024-11-06 14:02] LABS: BASOPHILS PERCENT AUTO 0.1 % (0.0-1.0); LYMPHOCYTES PERCENT AUTO 8.1 % (20.5-50.1); MONOCYTES PERCENT AUTO 4.3 % (2-8); NEUTROPHILS PERCENT AUTO 87.5 % (42.2-75.2)
[2024-11-06 14:18] LABS: INR 0.9 (0.9-1.2); PROTHROMBIN TIME 9.9 SEC (9.0-12.0)
[2024-11-06 14:21] LABS: A/G RATIO 0.9; ALBUMIN 3.6 g/dL (3.4-5.0); ANION GAP 7.3 mEq/L (7-13); BILIRUBIN TOTAL 0.3 mg/dL (0.2-1.0); BUN/CREATININE RATIO 17.3 (No establ ref range); CALCIUM 9.3 mg/dL (8.5-10.1); CREATININE 0.75 mg/dL (0.55-1.02); EST CRCL DRUG DOSING (CG) 62.54 mL/min; POTASSIUM,K 3.3 mmol/L (3.5-5.1); PROTEIN TOTAL,TP 7.8 g/dL (6.4-8.2)
[2024-11-06 14:24] LABS: SEG NEUTROPHILS PERCENT MAN 88 % (42-75)
[2024-11-06 14:25] LABS: BASOPHILS PERCENT MAN 1; LYMPHOCYTES PERCENT MAN 9 % (20-50); MONOCYTES PERCENT MAN 2 % (2-8); PLATELET COUNT ESTIMATE ADEQUATE; TOXIC GRANULATION 1+ SLIGHT
[2024-11-06] MEDS: Iopamidol 612 MG/ML 100 ML Bottle IVPUSH ONE (14:51)
[2024-11-06] MEDS: Iopamidol 755 Mg/ML 100 ML Bottle IVPUSH ONE (14:54)
[2024-11-06] MEDS: Sodium Chloride 0.9% 10 ML Syringe FLUSH PRN (15:46)
[2024-11-06] MEDS ORDERED: Acetaminophen 500 MG Tab PO PRN (18:31)
[2024-11-06 18:52] LABS: MAGNESIUM 1.5 mg/dL (1.8-2.4); PHOSPHORUS 3.5 mg/dL (2.6-4.7)
[2024-11-06 19:24] LABS: O2 DELIVERY DEVICE HI FLOW NASAL CANNU
[2024-11-06 19:26] LABS: ALLEN TEST POSITIVE; BASE EXCESS ARTERIAL 9 mmol/L ((-2)-(+3)); BICARBONATE,ARTERIAL 36.2 mmol/L (22-26); O2 SATURATION ARTERIAL 94 % (95-100); PCO2 ARTERIAL 61 mmHg (35-45); PH,ARTERIAL 7.39 (7.35-7.45); PO2 ARTERIAL 70 mmHg (70-100)
[2024-11-06] MEDS: Magnesium Sulf/Wat 2 GM/50 mL 50 ML IV SCH (19:29)
[2024-11-06] MEDS: Theophylline 300 MG Tab.ER PO SCH (19:29)
[2024-11-06] MEDS: Budesonide 0.5 MG/2 ML Neb Susp INH SCH (19:34)
[2024-11-06] MEDS: Arformoterol 15 MCG/2 ML Neb Soln INH SCH (19:34)
[2024-11-06] MEDS: Magnesium Sulf/Wat 4 GM/100 mL 4 GM in Premix Bag 1 BAG IV ONE (20:29)
[2024-11-06] MEDS: methylPREDNISolone Sodium Succinate 40 MG/1 ML SDV IVPUSH SCH (21:44)
[2024-11-06] MEDS: Heparin Sodium 5,000 Units/ML Vial SUBCUT SCH (21:44)
[2024-11-06] MEDS: Potassium Chloride 10 MEQ Tab.ER PO SCH (21:45)
[2024-11-06] MEDS: atorvaSTATin 10 MG Tab PO SCH (21:45)
[2024-11-06] MEDS: Montelukast 10 MG Tab PO SCH (21:45)
[2024-11-07] MEDS: LORazepam 2 MG/ML SDV IVPUSH PRN (00:22)
[2024-11-07] MEDS: Levothyroxine 125 MCG Tab PO SCH (05:18)
[2024-11-07 06:29] LABS: HEMATOCRIT 43.6 % (37.0-47.0); HEMOGLOBIN 14.8 g/dL (12.0-16.0); MEAN CORPUSCULAR HEMOGLOBIN 32.5 pg (27.0-34.0); MEAN CORPUSCULAR HGB CONC 33.9 g/dL (33.0-35.0); MEAN CORPUSCULAR VOLUME 95.6 fL (80-100); PLATELET COUNT,PLT 328 10^3/uL (150-450); RED BLOOD CELL COUNT 4.56 10^6/uL (4.2-5.4); WHITE BLOOD CELL COUNT,WBC 7.3 10^3/uL (5.0-10.0)
[2024-11-07 06:33] LABS: LYMPHOCYTES PERCENT AUTO 11.2 % (20.5-50.1); MONOCYTES PERCENT AUTO 5.9 % (2-8); NEUTROPHILS PERCENT AUTO 82.9 % (42.2-75.2)
[2024-11-07 06:36] LABS: CALCIUM 9.1 mg/dL (8.5-10.1); CREATININE 0.65 mg/dL (0.55-1.02); EST CRCL DRUG DOSING (CG) 72.16 mL/min; POTASSIUM,K 3.2 mmol/L (3.5-5.1)
[2024-11-07 06:43] LABS: ANION GAP 9.2 mEq/L (7-13)
[2024-11-07 07:01] LABS: LYMPHOCYTES PERCENT MAN 12 % (20-50); MONOCYTES PERCENT MAN 8 % (2-8); SEG NEUTROPHILS PERCENT MAN 80 % (42-75)
[2024-11-07] MEDS: Metoprolol Tartrate 5 MG/5 ML SDV IVPUSH PRN (07:37)
[2024-11-07] MEDS: Diltiazem 120 MG Cap.CD PO SCH (08:22)
[2024-11-07] MEDS: Spironolactone 25 MG Tab PO SCH (08:23)
[2024-11-07] MEDS ORDERED: Aminophylline 500 MG in Sodium Chloride 0.9% 500 ML IV SCH ×2 (08:30→10:30)
[2024-11-07] MEDS: Budesonide 0.5 MG/2 ML Neb Susp INH SCH (08:59)
[2024-11-07] MEDS: Tiotropium Bromide 4 GM Inhalation Spray (2.5mcg/1 dose; 10 doses) INH SCH (09:13)
[2024-11-07] MEDS: Aminophylline 500 MG in Sodium Chloride 0.9% 500 ML IV SCH (10:44)
[2024-11-07] MEDS: methylPREDNISolone Sodium Succinate 40 MG/1 ML SDV IVPUSH SCH (11:21)
[2024-11-07] MEDS: guaiFENesin 600 MG Tab.ER PO ONE (11:31)
[2024-11-07] MEDS: AZELASTINE NASBOTH SCH (11:31)
[2024-11-07] MEDS: Magnesium Sulf/Wat 2 GM/50 mL 2 GM in Premix Bag 1 BAG IV ONE (11:32)
[2024-11-07 11:58] LABS: O2 DELIVERY DEVICE OM; O2 SATURATION ARTERIAL 94 % (95-100); PH,ARTERIAL 7.33 (7.35-7.45); PO2 ARTERIAL 75 mmHg (70-100)
[2024-11-07 11:59] LABS: ALLEN TEST PERFORMED; BASE EXCESS ARTERIAL 13 mmol/L ((-2)-(+3)); BICARBONATE,ARTERIAL 42.9 mmol/L (22-26)
[2024-11-07 12:02] LABS: PCO2 ARTERIAL 83 mmHg (35-45)
[2024-11-07] MEDS: guaiFENesin 600 MG Tab.ER PO SCH (14:12)
[2024-11-07] MEDS: Levofloxacin/Dextrose 5%-Water 250 MG in Premix Bag 1 BAG IV ONE (14:12)
[2024-11-07] MEDS: Famotidine 20 MG/2 ML SDV IVPUSH ONE (14:13)
[2024-11-07] MEDS: Pantoprazole 40 MG Tab.CR PO SCH (15:28)
[2024-11-07] MEDS: Arformoterol 15 MCG/2 ML Neb Soln INH SCH (17:30)
[2024-11-07] MEDS: Loratadine 10 MG Tab PO SCH (20:55)
[2024-11-07] MEDS: Metoprolol Tartrate 25 MG Tab PO SCH ×2 (20:57→21:17)
[2024-11-07] MEDS: Non-Formulary Medication 1 Each (Azelastine Hcl [Azelastine Hcl] 137 MCG/0.137 ML Spray.Pu NS SCH (22:36)
[2024-11-08] MEDS: Metoprolol Tartrate 5 MG/5 ML SDV IVPUSH PRN (04:44)
[2024-11-08] MEDS: Formoterol/Mometasone 200-5 MCG 8.8 GM Inhaler INH SCH (06:15)
[2024-11-08 06:32] LABS: BASOPHILS PERCENT AUTO 0.1 % (0.0-1.0); HEMOGLOBIN 14.4 g/dL (12.0-16.0); LYMPHOCYTES PERCENT AUTO 4.7 % (20.5-50.1); MEAN CORPUSCULAR HEMOGLOBIN 32.7 pg (27.0-34.0); MEAN CORPUSCULAR HGB CONC 33.5 g/dL (33.0-35.0); MEAN CORPUSCULAR VOLUME 97.7 fL (80-100); MONOCYTES PERCENT AUTO 7.4 % (2-8); NEUTROPHILS PERCENT AUTO 87.8 % (42.2-75.2); PLATELET COUNT,PLT 385 10^3/uL (150-450); WHITE BLOOD CELL COUNT,WBC 14.8 10^3/uL (5.0-10.0)
[2024-11-08] MEDS: Magnesium Oxide 400 MG Tab PO SCH (08:23)
[2024-11-08] MEDS: Saccharomyces Boulardii (Probiotic) 250 MG Cap PO SCH (08:23)
[2024-11-08] MEDS: ROFLUMILAST PO SCH (08:26)
[2024-11-08] MEDS ORDERED: Nystatin Topical Powder 60 GM Bottle TOP SCH (09:00)
[2024-11-08] MEDS: Levofloxacin/Dextrose 5%-Water 250 MG in Premix Bag 1 BAG IV SCH (10:05)
[2024-11-08] MEDS: Levofloxacin/Dextrose 5%-Water 750 MG in Premix Bag 1 BAG IV ONE (10:36)
[2024-11-08] MEDS: Levofloxacin/Dextrose 5%-Water 750 MG in Premix Bag 1 BAG IV SCH (10:42)
[2024-11-08] MEDS: methylPREDNISolone Sodium Succinate 40 MG/1 ML SDV IVPUSH SCH (12:29)
[2024-11-09 06:43] LABS: BASOPHILS PERCENT AUTO 0.1 % (0.0-1.0); HEMATOCRIT 43.8 % (37.0-47.0); HEMOGLOBIN 14.4 g/dL (12.0-16.0); LYMPHOCYTES PERCENT AUTO 3.1 % (20.5-50.1); MEAN CORPUSCULAR HEMOGLOBIN 32.6 pg (27.0-34.0); MEAN CORPUSCULAR HGB CONC 32.9 g/dL (33.0-35.0); MEAN CORPUSCULAR VOLUME 99.1 fL (80-100); MONOCYTES PERCENT AUTO 7.2 % (2-8); NEUTROPHILS PERCENT AUTO 89.6 % (42.2-75.2); PLATELET COUNT,PLT 377 10^3/uL (150-450); RED BLOOD CELL COUNT 4.42 10^6/uL (4.2-5.4); WHITE BLOOD CELL COUNT,WBC 13.1 10^3/uL (5.0-10.0)
[2024-11-09] MEDS: Theophylline 300 MG Tab.ER PO SCH (08:53)
[2024-11-09] MEDS: Morphine 2 MG/ML SYRINGE IVPUSH ONE (10:34)
[2024-11-09] MEDS ORDERED: Naloxone 2 MG/2 ML Syringe IVPUSH PRN (14:54)
[2024-11-09] MEDS: Morphine 2 MG/ML SYRINGE IVPUSH PRN (15:10)
[2024-11-09] MEDS: Mirtazapine 15 MG Tab PO SCH (21:18)
[2024-11-10 06:46] LABS: BASOPHILS PERCENT AUTO 0.2 % (0.0-1.0); HEMATOCRIT 44.4 % (37.0-47.0); HEMOGLOBIN 14.2 g/dL (12.0-16.0); LYMPHOCYTES PERCENT AUTO 3.3 % (20.5-50.1); MEAN CORPUSCULAR HEMOGLOBIN 32.1 pg (27.0-34.0); MEAN CORPUSCULAR VOLUME 100.2 fL (80-100); MONOCYTES PERCENT AUTO 6.7 % (2-8); NEUTROPHILS PERCENT AUTO 89.8 % (42.2-75.2); PLATELET COUNT,PLT 380 10^3/uL (150-450); RED BLOOD CELL COUNT 4.43 10^6/uL (4.2-5.4); WHITE BLOOD CELL COUNT,WBC 13.9 10^3/uL (5.0-10.0)
[2024-11-10 07:09] LABS: ALANINE AMINOTRANSFERASE,ALT 33 U/L (14-59); ALBUMIN 3.2 g/dL (3.4-5.0); ALKALINE PHOSPHATASE 68 U/L (46-116); ASPARTATE AMNIOTRANSFERASE,AST 28 U/L (15-37); BILIRUBIN TOTAL 0.4 mg/dL (0.2-1.0); BLOOD UREA NITROGEN,BUN 22 mg/dL (7-18); BUN/CREATININE RATIO 30.6 (No establ ref range); CALCIUM 9.4 mg/dL (8.5-10.1); CHLORIDE,CL 97 mmol/L (98-107); CREATININE 0.72 mg/dL (0.55-1.02); EST CRCL DRUG DOSING (CG) 65.14 mL/min; GLUCOSE RANDOM 150 mg/dL (70-99); MAGNESIUM 2.2 mg/dL (1.8-2.4); POTASSIUM,K 4.7 mmol/L (3.5-5.1); PROTEIN TOTAL,TP 7.2 g/dL (6.4-8.2); SODIUM,NA 140 mmol/L (136-145)
[2024-11-10 07:16] LABS: ESTIMATED GFR 88 mL/min (>=60)
[2024-11-10 07:17] LABS: ANION GAP 2.69999 mEq/L (7-13); CARBON DIOXIDE,CO2 > 45 mmol/L (21-32)
[2024-11-10] MEDS ORDERED: Albuterol/Ipratropium 3.0-0.5 MG/3 ML Neb Soln NEB PRN (10:51)
[2024-11-10] MEDS: guaiFENesin 600 MG Tab.ER PO SCH (21:01)
[2024-11-10] MEDS: Heparin Sodium 5,000 Units/ML Vial SUBCUT SCH (21:03)
[2024-11-11 07:09] LABS: ALBUMIN 3.1 g/dL (3.4-5.0); ANION GAP 2.3 mEq/L (7-13); BILIRUBIN TOTAL 0.5 mg/dL (0.2-1.0); BUN/CREATININE RATIO 30.1 (No establ ref range); CALCIUM 9.3 mg/dL (8.5-10.1); CREATININE 0.73 mg/dL (0.55-1.02); EST CRCL DRUG DOSING (CG) 64.25 mL/min; MAGNESIUM 2.1 mg/dL (1.8-2.4); POTASSIUM,K 4.3 mmol/L (3.5-5.1); PROTEIN TOTAL,TP 6.8 g/dL (6.4-8.2)
[2024-11-11 07:12] LABS: A/G RATIO 0.84
[2024-11-11] MEDS: Ondansetron 4 MG/2 ML SDV IVPUSH PRN (10:14)
[2024-11-12 09:25] LABS: HEMATOCRIT 43.9 % (37.0-47.0); HEMOGLOBIN 13.7 g/dL (12.0-16.0); MEAN CORPUSCULAR HEMOGLOBIN 32.3 pg (27.0-34.0); MEAN CORPUSCULAR HGB CONC 31.2 g/dL (33.0-35.0); MEAN CORPUSCULAR VOLUME 103.5 fL (80-100); PLATELET COUNT,PLT 377 10^3/uL (150-450); RED BLOOD CELL COUNT 4.24 10^6/uL (4.2-5.4); WHITE BLOOD CELL COUNT,WBC 12.9 10^3/uL (5.0-10.0)
[2024-11-12 09:30] LABS: LYMPHOCYTES PERCENT AUTO 3.4 % (20.5-50.1); NEUTROPHILS PERCENT AUTO 87.2 % (42.2-75.2)
[2024-11-12 09:31] LABS: BASOPHILS PERCENT AUTO 0.1 % (0.0-1.0); MONOCYTES PERCENT AUTO 9.3 % (2-8)
[2024-11-12 09:44] LABS: LYMPHOCYTES PERCENT MAN 6 % (20-50); MONOCYTES PERCENT MAN 11 % (2-8); SEG NEUTROPHILS PERCENT MAN 83 % (42-75)
[2024-11-12 09:45] LABS: ALBUMIN 3.1 g/dL (3.4-5.0); ANION GAP 2.9 mEq/L (7-13); BILIRUBIN TOTAL 0.4 mg/dL (0.2-1.0); BUN/CREATININE RATIO 38.4 (No establ ref range); CREATININE 0.73 mg/dL (0.55-1.02); EST CRCL DRUG DOSING (CG) 64.25 mL/min; MAGNESIUM 2.3 mg/dL (1.8-2.4); POTASSIUM,K 4.9 mmol/L (3.5-5.1); PROTEIN TOTAL,TP 6.5 g/dL (6.4-8.2)
[2024-11-12 09:46] LABS: A/G RATIO 0.91
[2024-11-12] MEDS: methylPREDNISolone Sodium Succinate 40 MG/1 ML SDV IVPUSH SCH (15:21)
[2024-11-12] MEDS: Mirtazapine 15 MG Tab PO SCH (21:58)
[2024-11-13 08:33] VITALS: BP 125/51; PULSE 112
== END 2024-11-13 12:20 | disposition hospice, home (50) | DRG 871 ==
LOC: DL.ED 13:22 → DL.MS 16:13 → DL.ED 16:38
PROVIDERS: ADMIT Internal Medicine; ATTEND Internal Medicine
PROC: 3E03329 Introduction of Other Anti-infective into Peripheral Vein, Percutaneous Approach (ICD-10-PCS; principal; 2024-11-06)
PROC: 4A133R1 Monitoring of Arterial Saturation, Peripheral, Percutaneous Approach (ICD-10-PCS; 2024-11-06)
PROC: 5A0935A Assistance with Respiratory Ventilation, Less than 24 Consecutive Hours, High Flow/Velocity Cannula (ICD-10-PCS; 2024-11-06)
PROC: 5A09357 Assistance with Respiratory Ventilation, Less than 24 Consecutive Hours, Continuous Positive Airway Pressure (ICD-10-PCS; 2024-11-08)
PROC: 5A09357 Assistance with Respiratory Ventilation, Less than 24 Consecutive Hours, Continuous Positive Airway Pressure (ICD-10-PCS; 2024-11-10)
DX: A41.9 Sepsis, unspecified organism (principal); J44.9 Chronic obstructive pulmonary disease, unspecified; R09.02 Hypoxemia; G92.8 Other toxic encephalopathy; J18.9 Pneumonia, unspecified organism; J96.21 Acute and chronic respiratory failure with hypoxia; J96.22 Acute and chronic respiratory failure with hypercapnia; Z88.8 Allergy status to other drugs, medicaments and biological substances; Z79.890 Hormone replacement therapy; J44.0 Chronic obstructive pulmonary disease with (acute) lower respiratory infection; E87.1 Hypo-osmolality and hyponatremia; J44.1 Chronic obstructive pulmonary disease with (acute) exacerbation; I10 Essential (primary) hypertension; E03.9 Hypothyroidism, unspecified; E78.5 Hyperlipidemia, unspecified; Z66 Do not resuscitate; E87.6 Hypokalemia; E83.42 Hypomagnesemia; N81.4 Uterovaginal prolapse, unspecified; J43.2 Centrilobular emphysema; Z99.81 Dependence on supplemental oxygen; Z88.1 Allergy status to other antibiotic agents; Z88.0 Allergy status to penicillin; Z79.51 Long term (current) use of inhaled steroids; Z79.899 Other long term (current) drug therapy; Z79.2 Long term (current) use of antibiotics; Z79.52 Long term (current) use of systemic steroids; Z87.891 Personal history of nicotine dependence; Z85.118 Personal history of other malignant neoplasm of bronchus and lung
CPT/HCPCS: 36415; 36600; 71045; 71275; 80048; 80053; 80198; 82803; 83735; 84100; 84484; 85025; 85610; 87040; 87428-QW; 93005; 93010; 94640; 94660; 96374; 99285; 99285-25; A9270-GY; J0280; J1644; J1956; J2060; J2270; J2405; J2919; J3475; J3490; J7040; Q9967

== ENCOUNTER 2024-11-14 10:33 | Emergency (ER) | payer MEDICARE, BC ==
[2024-11-14] MEDS: Albuterol/Ipratropium 3.0-0.5 MG/3 ML Neb Soln NEB ONE (11:26)
[2024-11-14 11:30] VITALS: BP 136/84; PULSE 80
== END 2024-11-14 11:38 ==
LOC: DL.ED 10:33
DX: J44.1 Chronic obstructive pulmonary disease with (acute) exacerbation (principal); I10 Essential (primary) hypertension; E03.9 Hypothyroidism, unspecified; Z88.0 Allergy status to penicillin; Z88.1 Allergy status to other antibiotic agents; Z79.890 Hormone replacement therapy; Z79.899 Other long term (current) drug therapy; Z87.891 Personal history of nicotine dependence
CPT/HCPCS: 94640; 99285; A9270